=== PATIENT | female | born 1955 | race Caucasian/White ===

== ENCOUNTER 2019-03-05 02:56 | Emergency (ER) | payer MEDICARE, OTHER ==
[2019-03-05] MEDS ORDERED: Colchicine 0.6 MG Tab PO ONE ×2 (02:57→03:49)
[2019-03-05 03:04] VITALS: BP 172/69
--- NOTE | 2019-03-05 03:16 | EDM.PDOC ---
ED HPI GENERAL MEDICAL PROBLEM - General Chief Complaint: Lower Extremity Injury/Pain Stated Complaint: LEFT FOOT/ANKLE PAIN Time Seen by Provider: 03/05/19 03:05 Source of Information: Reports: Patient History Limitations: Reports: No Limitations - History of Present Illness INITIAL COMMENTS - FREE TEXT/NARRATIVE: This 63 yo female patient reports to the ED with left foot and ankle pain. The patient reports she noticed increased pain at about 1700 last night. The patient does not recall any injury to the area. The patient reports she took Tylenol and a gout pill with no symptom relief. The patient also reports she had some chest pain while she was driving, but denied chest pain during assessment. The patient was advised that our lab is not able to do the testing for cardiac problems, so if she has chest pain, she will need to be placed in an ambulance and taken to a facility able to run necessary labs to rule out cardiac. The patient reports she does not have any chest pain. 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, Other Medication(s) ("a gout pill" ) Left Ankle Pain Score (Numeric/FACES): 9 - Related Data Allergies Allergy/AdvReac Type Severity Reaction Status Date / Time atorvastatin calcium Allergy Muscle Verified 03/05/19 03:05 [From Lipitor] Aches cerivastatin sodium Allergy Muscle Verified 03/05/19 03:05 [From Baycol] Aches hydrocodone Allergy Disorientat Verified 03/05/19 03:05 ion lovastatin [From Mevacor] Allergy Nausea and Verified 03/05/19 03:05 Vomiting oxycodone [Oxycodone] Allergy Disorientat Verified 03/05/19 03:05 ion pravastatin Allergy Muscle Verified 03/05/19 03:05 Aches simvastatin [From Zocor] Allergy Muscle Verified 03/05/19 03:05 Aches tramadol Allergy Itching Verified 03/05/19 03:05 prednisone AdvReac Anxiety Verified 03/05/19 03:05 Home Meds: Home Meds Aspirin [Yina Chewable] 81 mg PO DAILY 11/06/13 [History] Enalapril Maleate 10 mg PO DAILY 11/06/13 [History] Insulin Glarg,Human.Rec.Analog [Lantus Solostar] 63 units SUBCUT ACBED 11/06/13 [History] Isosorbide Mononitrate [Isosorbide Mononitrate ER] 60 mg PO DAILY 11/06/13 [ History] Omeprazole 1 tab PO BID 11/06/13 [History] metFORMIN [Glucophage] 1 tab PO BID 11/06/13 [History] Acetaminophen [Tylenol Extra Strength] 1 tab PO Q6H 02/21/16 [History] Albuterol Sulfate [Proair Hfa] 2 puff INH ASDIRECTED PRN 02/21/16 [History] Albuterol/Ipratropium [DuoNeb 3.0-0.5 MG/3 ML] 1 bottle INH BID PRN 02/21/16 [ History] Codeine/guaiFENesin [Robitussin AC] 5 ml PO BEDTIME PRN 02/21/16 [History] Multivitamin with Minerals [Multiple Vitamin] 1 tab PO DAILY 02/21/16 [History] Nitroglycerin [Nitrostat] 1 tab SL ASDIRECTED PRN 02/21/16 [History] Tacrolimus [Protopic] 1 squirt TOP BID PRN 02/21/16 [History] Escitalopram [Lexapro] 10 mg PO DAILY 03/05/19 [History] Metoprolol Succinate [Toprol Xl] 25 mg PO DAILY 03/05/19 [History] Ranolazine [Ranolazine ER] 500 mg PO BID 03/05/19 [History] Past Medical History HEENT History: Reports: Impaired Vision Cardiovascular History: Reports: Heart Murmur, High Cholesterol, Hypertension Respiratory History: Reports: COPD, Sleep Apnea Other Respiratory History: "mushroom lung" Gastrointestinal History: Reports: GERD 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 History: Reports: None 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: Musculoskeletal History: Reports: Back Pain, Chronic Neurological History: Reports: Other (See Below) Other Neuro History: RESTLESS LEG SYNDROME Psychiatric History: Reports: None Endocrine/Metabolic History: Reports: Diabetes, Type II, Obesity/BMI 30+ Hematologic History: Reports: None Immunologic History: Reports: None Oncologic (Cancer) History: Reports: None 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 ED EXAM, GENERAL - Physical Exam Exam: See Below Exam Limited By: No Limitations General Appearance: Alert, WD/WN, Mild Distress, Obese Eye Exam: Bilateral Eye: EOMI, Normal Inspection, PERRL Ears: Normal External Exam, Normal Canal, Hearing Grossly Normal, Normal TMs Nose: Normal Inspection, Normal Mucosa, No Blood Throat/Mouth: Normal Inspection, Normal Lips, Normal Teeth, Normal Gums, Normal Oropharynx, Normal Voice, No Airway Compromise Head: Atraumatic, Normocephalic Neck: Normal Inspection, Supple, Non-Tender, Full Range of Motion Respiratory/Chest: No Respiratory Distress, Lungs Clear, Normal Breath Sounds, No Accessory Muscle Use, Chest Non-Tender Cardiovascular: Normal Peripheral Pulses, Regular Rate, Rhythm, No Edema, No Gallop, No JVD, No Murmur, No Rub GI/Abdominal: Normal Bowel Sounds, Soft, Non-Tender, No Organomegaly, No Distention, No Abnormal Bruit, No Mass, Other (obese) (Female) Exam: Deferred Rectal (Female) Exam: Deferred Back Exam: Normal Inspection, Full Range of Motion, NT Extremities: Normal Inspection, Normal Range of Motion, No Pedal Edema, Normal Capillary Refill, Leg Pain (left ankle and foot pain) Neurological: Alert, Oriented, CN II-XII Intact, Normal Cognition, Normal Reflexes, No Motor/Sensory Deficits Psychiatric: Normal Affect, Normal Mood Skin Exam: Warm, Dry, Intact, Normal Color, No Rash Lymphatic: No Adenopathy Course - Vital Signs Last Recorded V/S: Last Vital Signs Temp 36.6 C 03/05/19 03:01 Pulse 95 03/05/19 03:01 Resp 18 03/05/19 03:01 BP 172/69 H 03/05/19 03:01 Pulse Ox 95 03/05/19 03:01 - Orders/Labs/Meds Labs: Laboratory Tests 03/05/19 03/05/19 03/05/19 Range/Units 03:14 03:14 03:14 WBC 10.5 H (5.0-10.0) 10^3/uL RBC 4.56 (4.2-5.4) 10^6/uL Hgb 13.8 (12.0-16.0) g/dL Hct 39.8 (37.0-47.0) % MCV 87.3 (80-100) fL MCH 30.3 (27.0-34.0) pg MCHC 34.7 (33.0-35.0) g/dL Plt Count 251 (150-450) 10^3/uL Neut % (Auto) 57.8 (42.2-75.2) % Lymph % (Auto) 31.0 (20.5-50.1) % [place] % (Auto) 9.3 H (2-8) % Eos % (Auto) 1.4 (1.0-3.0) % Baso % (Auto) 0.5 (0.0-1.0) % Sodium 135 (135-145) mmol/L Potassium 4.4 (3.6-5.0) mmol/L Chloride 101 (101-111) mmol/L Carbon Dioxide 23.0 (21.0-31.0) mmol/L Anion Gap 15.4 BUN 18 (7-18) mg/dL Creatinine 0.8 (0.6-1.3) mg/dL Est Cr Clr Drug Dosing 57.99 mL/min Estimated GFR (MDRD) > 60 BUN/Creatinine Ratio 22.50 Glucose 175 H (74-105) mg/dL Uric Acid 7.4 H (2.6-7.2) mg/dL Calcium 8.7 (8.4-10.2) mg/dl Total Bilirubin 0.6 (0.2-1.0) mg/dL AST 21 (10-42) IU/L ALT 21 (10-60) IU/L Alkaline Phosphatase 79 (42-121) IU/L Total Protein 6.9 (6.7-8.2) g/dl Albumin 3.9 (3.2-5.5) g/dl Globulin 3.0 Albumin/Globulin Ratio 1.30 Meds: Medications Discontinued Medications Generic Name Dose Route Start Last Admin Trade Name Freq PRN Reason Stop Dose Admin Colchicine 1.2 mg 03/05/19 03:49 Colcrys PO 03/05/19 03:50 ONETIME ONE Departure - Departure Time of Disposition: 03:52 Disposition: Home, Self-Care 01 Condition: Fair Clinical Impression: Acute gout of left ankle Qualifiers: Gout etiology: unspecified cause Qualified Code(s): M10.9 - Gout, unspecified - Discharge Information *PRESCRIPTION DRUG MONITORING PROGRAM REVIEWED*: Not Applicable *COPY OF PRESCRIPTION DRUG MONITORING REPORT IN PATIENT LANA: Not Applicable Instructions: Low-Purine Eating Plan Forms: ED Department Discharge Care Plan Goals: The patient was advised of the examination, lab and x-ray results during the visit. The patient was given an oral dose of Colchicine (1.2 mg) while in the ED. The patient was discharged with a dose of Colchicine (0.6 mg) #1 to take at 0500. The patient was encouraged to follow-up with her primary care facility for continued evaluation and further treatment. If the patient has any additional symptoms or concerns, the patient should either return to the emergency department or visit her primary care facility.
[2019-03-05 03:42] LABS: ANION GAP 15.4; CHLORIDE,CL 101 mmol/L (101-111); SODIUM,NA 135 mmol/L (135-145)
[2019-03-05] MEDS ORDERED: Colchicine 0.6 MG Tab ONE (03:53)
== END 2019-03-05 04:02 | disposition home or self-care (01) ==
LOC: DL.ED 02:56
DX: M10.9 Gout, unspecified (principal); E78.00 Pure hypercholesterolemia, unspecified; I10 Essential (primary) hypertension; J44.9 Chronic obstructive pulmonary disease, unspecified; Z88.8 Allergy status to other drugs, medicaments and biological substances; K21.9 Gastro-esophageal reflux disease without esophagitis; Z79.82 Long term (current) use of aspirin; Z79.4 Long term (current) use of insulin; Z79.899 Other long term (current) drug therapy; E11.9 Type 2 diabetes mellitus without complications
CPT/HCPCS: 36415; 73610; 73630; 80053; 84550; 85025; 99283; A9270

== ENCOUNTER 2019-12-01 11:30 | Emergency (ER) | payer MEDICARE, OTHER ==
[~2019-12-01 11:30] MED LIST: Sodium Chloride 0.9% 10 ML Syringe FLUSH PRN
--- NOTE | 2019-12-01 11:54 | EDM.PDOC ---
<Chandler Morales - Last Filed: 12/01/19 11:49> ED HPI GENERAL MEDICAL PROBLEM - General Chief Complaint: Chest Pain Stated Complaint: [facility] Time Seen by Provider: 12/01/19 11:49 Source of Information: Reports: Patient, RN, RN Notes Reviewed History Limitations: Reports: No Limitations - History of Present Illness INITIAL COMMENTS - FREE TEXT/NARRATIVE: Patient presents to the ED after being seen at clinic for a routine follow-up. She reports chest pain and feeling "a little funny" when the chest pain came on and did not feel herself for a moment when the chest pain presented. Her blood pressures were recorded in clinic and were in the 90s/60s. She states she has been having this chest pain on and off for over a month but hasn't mentioned it because she has enough stress and worry in her life with her having lung cancer. She does not report any chest pain currently and states that it only lasts a few minutes. When the pain presents it is in her upper left chest that radiates to her left armpit and arm. She is currently resting comfortably in the ED bed. Onset: Gradual Location: Reports: Chest (upper left chest) Quality: Reports: Ache, Pressure Severity: Mild Improves with: Reports: None Worsens with: Reports: None Associated Symptoms: Reports: Chest Pain, Shortness of Breath (When the pain comes on she reports having a harder time taking a deep breath.). Denies: Confusion, Cough, Diaphoresis, Fever/Chills, Headaches, Loss of Appetite, Nausea /Vomiting - Related Data Allergies Allergy/AdvReac Type Severity Reaction Status Date / Time atorvastatin calcium Allergy Muscle Verified 03/05/19 03:05 [From Lipitor] Aches cerivastatin sodium Allergy Muscle Verified 03/05/19 03:05 [From Baycol] Aches hydrocodone Allergy Disorientat Verified 03/05/19 03:05 ion lovastatin [From Mevacor] Allergy Nausea and Verified 03/05/19 03:05 Vomiting oxycodone [Oxycodone] Allergy Disorientat Verified 03/05/19 03:05 ion pravastatin Allergy Muscle Verified 03/05/19 03:05 Aches simvastatin [From Zocor] Allergy Muscle Verified 03/05/19 03:05 Aches tramadol Allergy Itching Verified 03/05/19 03:05 prednisone AdvReac Anxiety Verified 03/05/19 03:05 Home Meds: Home Meds Aspirin [Yina Chewable] 81 mg PO DAILY 11/06/13 [History] Enalapril Maleate 10 mg PO DAILY 11/06/13 [History] Insulin Glarg,Human.Rec.Analog [Lantus Solostar] 63 units SUBCUT ACBED 11/06/13 [History] Isosorbide Mononitrate [Isosorbide Mononitrate ER] 60 mg PO DAILY 11/06/13 [ History] Omeprazole 1 tab PO BID 11/06/13 [History] metFORMIN [Glucophage] 1 tab PO BID 11/06/13 [History] Acetaminophen [Tylenol Extra Strength] 1 tab PO Q6H 02/21/16 [History] Albuterol Sulfate [Proair Hfa] 2 puff INH ASDIRECTED PRN 02/21/16 [History] Albuterol/Ipratropium [DuoNeb 3.0-0.5 MG/3 ML] 1 bottle INH BID PRN 02/21/16 [ History] Codeine/guaiFENesin [Robitussin AC] 5 ml PO BEDTIME PRN 02/21/16 [History] Multivitamin with Minerals [Multiple Vitamin] 1 tab PO DAILY 02/21/16 [History] Nitroglycerin [Nitrostat] 1 tab SL ASDIRECTED PRN 02/21/16 [History] Tacrolimus [Protopic] 1 squirt TOP BID PRN 02/21/16 [History] Escitalopram [Lexapro] 10 mg PO DAILY 03/05/19 [History] Metoprolol Succinate [Toprol Xl] 25 mg PO DAILY 03/05/19 [History] Ranolazine [Ranolazine ER] 500 mg PO BID 03/05/19 [History] Past Medical History HEENT History: Reports: Impaired Vision Cardiovascular History: Reports: Heart Murmur, High Cholesterol, Hypertension Respiratory History: Reports: COPD, Sleep Apnea Other Respiratory History: "mushroom lung" Gastrointestinal History: Reports: GERD 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 History: Reports: 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: Musculoskeletal History: Reports: Back Pain, Chronic Neurological History: Reports: Other (See Below) Other Neuro History: RESTLESS LEG SYNDROME Psychiatric History: Reports: None Endocrine/Metabolic History: Reports: Diabetes, Type II, Obesity/BMI 30+ Hematologic History: Reports: None Immunologic History: Reports: None Oncologic (Cancer) History: Reports: None 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 Denies: Edema, Lightheadedness, Palpitations, Syncope Endocrine: Reports: No Symptoms GI/Abdominal: Denies: Abdominal Pain, Constipation, Diarrhea, Nausea, Vomiting : Denies: Dysuria, Flank Pain, Frequency, Pain Musculoskeletal: Reports: No Symptoms Skin: Reports: No Symptoms Neurological: Denies: Confusion, Dizziness, Headache, Syncope, Tingling, Weakness Psychiatric: Denies: Agitation, Anxiety, Confusion Hematologic/Lymphatic: Reports: No Symptoms Immunologic: Reports: No Symptoms ED EXAM, GENERAL - Physical Exam Exam: See Below Exam Limited By: No Limitations General Appearance: Alert, WD/WN, No Apparent Distress Neck: Normal Inspection, Supple, Non-Tender, Full Range of Motion Respiratory/Chest: No Respiratory Distress, Lungs Clear, Normal Breath Sounds, No Accessory Muscle Use, Chest Non-Tender Cardiovascular: Normal Peripheral Pulses GI/Abdominal: Normal Bowel Sounds, Soft, Non-Tender, No Organomegaly, No Distention, No Abnormal Bruit, No Mass (Female) Exam: Deferred Rectal (Female) Exam: Deferred Back Exam: Normal Inspection, Full Range of Motion, NT Extremities: Normal Inspection, Normal Range of Motion, Non-Tender, Normal Capillary Refill, No Pedal Edema Neurological: Alert, Oriented, CN II-XII Intact, Normal Cognition, Normal Gait, Normal Reflexes, No Motor/Sensory Deficits Psychiatric: Normal Affect, Normal Mood Skin Exam: Warm, Dry, Intact, Normal Color, No Rash Lymphatic: No Adenopathy Course - Orders/Labs/Meds Orders: Active Orders 24 hr Category Date Time Status EKG 12 Lead [EKG Documentation Completion] [RC] STAT Care 12/01/19 11:07 Active Peripheral IV Care [RC] . DIRECTED Care 12/01/19 11:08 Active Chest 1V Frontal [CR] Stat Exams 12/01/19 11:07 Taken Sodium Chloride 0.9% [Saline Flush] Med 12/01/19 11:06 Active 10 ml FLUSH ASDIRECTED PRN Peripheral IV Insertion Adult [OM.PC] Stat Oth 12/01/19 11:07 Ordered Medication Orders Sodium Chloride (Saline Flush) 10 ml FLUSH ASDIRECTED PRN PRN Reason: Keep Vein Open Last Admin: 12/01/19 12:00 Dose: 10 ml Labs: Laboratory Tests 12/01/19 12/01/19 12/01/19 Range/Units 11:15 11:15 11:15 WBC 8.7 (5.0-10.0) 10^3/uL RBC 4.48 (4.2-5.4) 10^6/uL Hgb 14.0 (12.0-16.0) g/dL Hct 40.5 (37.0-47.0) % MCV 90.4 D (80-100) fL MCH 31.3 (27.0-34.0) pg MCHC 34.6 (33.0-35.0) g/dL Plt Count 264 (150-450) 10^3/uL Neut % (Auto) 60.2 (42.2-75.2) % Lymph % (Auto) 30.3 (20.5-50.1) % [place] % (Auto) 7.2 (2-8) % Eos % (Auto) 1.7 (1.0-3.0) % Baso % (Auto) 0.6 (0.0-1.0) % PT 9.9 (9.0-12.0) SEC INR 1.0 (0.9-1.2) APTT 22.1 (22.0-34.0) SEC Sodium 137 (135-145) mmol/L Potassium 4.8 (3.6-5.0) mmol/L Chloride 104 (101-111) mmol/L Carbon Dioxide 20.0 L (21.0-31.0) mmol/L Anion Gap 17.8 BUN 27 H (7-18) mg/dL Creatinine 1.0 (0.6-1.3) mg/dL Est Cr Clr Drug Dosing TNP Estimated GFR (MDRD) 55 BUN/Creatinine Ratio 27.00 Glucose 244 H (74-105) mg/dL Calcium 8.5 (8.4-10.2) mg/dl Total Bilirubin 0.4 (0.2-1.0) mg/dL AST 18 (10-42) IU/L ALT 18 (10-60) IU/L Alkaline Phosphatase 84 (42-121) IU/L Troponin I < 0.02 (0.00-0.02) ng/ml B-Natriuretic Peptide 6 (0-100) pg/ml Total Protein 6.8 (6.7-8.2) g/dl Albumin 3.7 (3.2-5.5) g/dl Globulin 3.1 Albumin/Globulin Ratio 1.19 Lipase 51 (22-51) U/L Meds: Medications Generic Name Dose Route Start Last Admin Trade Name Freq PRN Reason Stop Dose Admin Sodium Chloride 10 ml 12/01/19 11:06 12/01/19 12:00 Saline Flush FLUSH 10 ml ASDIRECTED PRN Administration Keep Vein Open Departure - Departure Disposition: Home, Self-Care 01 Clinical Impression: Recurrent chest pain Instructions: Nonspecific Chest Pain, [id number] Forms: ED Department Discharge Additional Instructions: Contact Dr. Ford to report your recurrent chest pain. Return to ER if worse at any time. - My Orders Last 24 Hours: My Active Orders 12/01/19 11:06 Sodium Chloride 0.9% [Saline Flush] 10 ml FLUSH ASDIRECTED PRN 12/01/19 11:07 EKG 12 Lead [EKG Documentation Completion] [RC] STAT Chest 1V Frontal [CR] Stat Peripheral IV Insertion Adult [OM.PC] Stat 12/01/19 11:08 Peripheral IV Care [RC] . DIRECTED - Assessment/Plan Last 24 Hours: My Active Orders 12/01/19 11:06 Sodium Chloride 0.9% [Saline Flush] 10 ml FLUSH ASDIRECTED PRN 12/01/19 11:07 EKG 12 Lead [EKG Documentation Completion] [RC] STAT Chest 1V Frontal [CR] Stat Peripheral IV Insertion Adult [OM.PC] Stat 12/01/19 11:08 Peripheral IV Care [RC] . DIRECTED <Mannie Tran - Last Filed: 02/05/20 13:02> ED HPI GENERAL MEDICAL PROBLEM - History of Present Illness INITIAL COMMENTS - FREE TEXT/NARRATIVE: Pt sent from clinic for chest pain evaluation. She went to clinic for lab review , and told them of her recurrent chest pain of one months duration. 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 Pt states she is currently pain free. Denies shortness of breath, palpitations, or any other symptoms. EKG INTERPRETATION EKG Date: 12/01/19 Time: 11:10 Rhythm: Other (SR) Rate (Beats/Min): 85 [place]: LAD-Left [place] Deviation P-Wave: Present QRS: Other (old inferior Q waves, late precordial R/S transition) ST-T: Normal QT: Normal Comparison: No Change Course - Radiology Interpretation Free Text/Narrative:: [facility] Final Radiology Report Call: [phone] assistance Online chat: [email or web address] Name: NOAH SANCHEZ Age: 64Years F Date: 12/01/2019 SSN: -- : 1955 Study: XR CHEST 1 VIEW FRONTAL Requesting Physician: MANNIE TRAN Images: 1 Addl Studies: Provided Clinical History: Contrast: Contrast Medium: Contrast Amount: Contrast Method: CONFIDENTIALITY STATEMENT This report is intended only for use by the referring physician, and only in accordance with law. If you received this in error, call [phone]. Page 1 of 1 PROCEDURE INFORMATION: Exam: XR Chest, 1 View Exam date and time: 12/01/2019 11:19 AM Age: 64 years old Clinical indication: Chest pain TECHNIQUE: Imaging protocol: XR of the chest Views: 1 view. COMPARISON: CR Chest 2V 02/04/2016 1:55 AM FINDINGS: Lungs: Unremarkable. No consolidation. Pleural space: Unremarkable. No pleural effusion. No pneumothorax. Heart/Mediastinum: Unremarkable. No cardiomegaly. Bones/joints: Unremarkable. IMPRESSION: No acute findings. Thank you for allowing us to participate in the care of your patient. Dictated and Authenticated by: Daniel Stein MD 12/01/2019 12:20 PM Central Time ([place] & [place]) - Re-Assessments/Exams Free Text/Narrative Re-Assessment/Exam: 12/01/19 12:43 I personally performed or re-performed the physical examination and medical decision making. I have verified all student documentation or findings, including history, physical exam and/or medical decision making. Departure - Departure Time of Disposition: 13:00 Condition: Good Sepsis Event Note - Focused Exam Date Exam was Performed: 12/01/19 Time Exam was Performed: 13:00
[2019-12-01 12:10] LABS: ANION GAP 17.8; CHLORIDE,CL 104 mmol/L (101-111); SODIUM,NA 137 mmol/L (135-145)
[2019-12-01 17:50] VITALS: BP 124/69; PULSE 62
== END 2019-12-01 13:12 | disposition home or self-care (01) ==
LOC: DL.ED 11:30
DX: R07.9 Chest pain, unspecified (principal); I10 Essential (primary) hypertension; J44.9 Chronic obstructive pulmonary disease, unspecified; K21.9 Gastro-esophageal reflux disease without esophagitis; Z79.82 Long term (current) use of aspirin; Z88.8 Allergy status to other drugs, medicaments and biological substances; Z88.5 Allergy status to narcotic agent; Z79.899 Other long term (current) drug therapy
CPT/HCPCS: 36415; 71045; 80053; 83690; 83880; 84484; 85025; 85610; 85730; 93005; 99285-25

== ENCOUNTER 2020-08-30 16:33 | Observation (INO) | payer MEDICARE, OTHER ==
--- NOTE | 2020-08-30 16:58 | EDM.PDOC ---
ED HPI GENERAL MEDICAL PROBLEM - General Stated Complaint: DIZZINESS/LT ARM WEAKNESS Time Seen by Provider: 08/30/20 16:56 Source of Information: Reports: Patient, Provider (JAMAR Jules from [facility]), RN, RN Notes Reviewed History Limitations: Reports: No Limitations - History of Present Illness INITIAL COMMENTS - FREE TEXT/NARRATIVE: Patient presents to the ED from [facility] at the request of GEMMA Jules for dizziness, nausea, vomiting, and progressive left arm weakness. Per patient report, the dizziness began yesterday morning at approximately 0100. She states she stood up while she was dizzy and immediately vomited. She attests to ongoing dizziness with vomiting over the past 24 hours; it is maintaining and not progressing in volume or frequency. She notices it most when she lays down; she currently denies dizziness as she is sitting up. She does attest to an episode of chest pain with her first bout of dizziness, but states she has a history of angina. She states the chest pain remained localized to her chest and did not radiate. She denies abdominal pain, diarrhea, melena, hematochezia, fever, shaking chills, or recent illness. She denies a history of stroke. She did not take any medications for any of her aforementioned symptoms. - Related Data Allergies Allergy/AdvReac Type Severity Reaction Status Date / Time atorvastatin calcium Allergy Muscle Verified 08/30/20 17:28 [From Lipitor] Aches cerivastatin sodium Allergy Muscle Verified 08/30/20 17:28 [From Baycol] Aches hydrocodone Allergy Disorientat Verified 08/30/20 17:28 ion lovastatin [From Mevacor] Allergy Nausea and Verified 08/30/20 17:28 Vomiting oxycodone [Oxycodone] Allergy Disorientat Verified 08/30/20 17:28 ion pravastatin Allergy Muscle Verified 08/30/20 17:28 Aches simvastatin [From Zocor] Allergy Muscle Verified 08/30/20 17:28 Aches tramadol Allergy Itching Verified 08/30/20 17:28 prednisone AdvReac Anxiety Verified 08/30/20 17:28 Home Meds: Home Meds Aspirin [Yina Chewable] 81 mg PO DAILY 11/06/13 [History] Enalapril Maleate 10 mg PO DAILY 11/06/13 [History] Insulin Glarg,Human.Rec.Analog [Lantus Solostar] 63 units SUBCUT ACBED 11/06/13 [History] Isosorbide Mononitrate [Isosorbide Mononitrate ER] 60 mg PO DAILY 11/06/13 [History] Omeprazole 1 tab PO BID 11/06/13 [History] metFORMIN [Glucophage] 1 tab PO BID 11/06/13 [History] Acetaminophen [Tylenol Extra Strength] 1 tab PO Q6H 02/21/16 [History] Albuterol Sulfate [Proair Hfa] 2 puff INH ASDIRECTED PRN 02/21/16 [History] Albuterol/Ipratropium [DuoNeb 3.0-0.5 MG/3 ML] 1 bottle INH BID PRN 02/21/16 [History] Codeine/guaiFENesin [Robitussin AC] 5 ml PO BEDTIME PRN 02/21/16 [History] Multivitamin with Minerals [Multiple Vitamin] 1 tab PO DAILY 02/21/16 [History] Nitroglycerin [Nitrostat] 1 tab SL ASDIRECTED PRN 02/21/16 [History] Tacrolimus [Protopic] 1 squirt TOP BID PRN 02/21/16 [History] Escitalopram [Lexapro] 10 mg PO DAILY 03/05/19 [History] Metoprolol Succinate [Toprol Xl] 25 mg PO DAILY 03/05/19 [History] Ranolazine [Ranolazine ER] 500 mg PO BID 03/05/19 [History] Past Medical History HEENT History: Reports: Impaired Vision Cardiovascular History: Reports: Heart Murmur, High Cholesterol, Hypertension Respiratory History: Reports: COPD, Sleep Apnea Other Respiratory History: "mushroom lung" Gastrointestinal History: Reports: GERD 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 History: Reports: None 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: Musculoskeletal History: Reports: Back Pain, Chronic Neurological History: Reports: Other (See Below) Other Neuro History: RESTLESS LEG SYNDROME Psychiatric History: Reports: None Endocrine/Metabolic History: Reports: Diabetes, Type II, Obesity/BMI 30+ Hematologic History: Reports: None Immunologic History: Reports: None Oncologic (Cancer) History: Reports: None 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 ED EXAM, DIZZINESS - Physical Exam Exam: See Below Exam Limited By: No Limitations General Appearance: Alert, WD/WN, No Apparent Distress Eye Exam: Bilateral Eye: EOMI, Normal Inspection, PERRL Ears: Normal External Exam, Normal Canal, Hearing Grossly Normal, Normal TMs Throat/Mouth: Normal Inspection, Normal Voice, No Airway Compromise Head Exam: Atraumatic, Normocephalic Vertigo: No: reproducible Neck: Normal Inspection, Supple, Non-Tender Respiratory/Chest: No Respiratory Distress, Lungs Clear, Normal Breath Sounds, No Accessory Muscle Use, Chest Non-Tender Cardiovascular: Normal Peripheral Pulses, Regular Rate, Rhythm, No Edema, No Gallop, No Murmur, No Rub GI/Abdominal: Normal Bowel Sounds, Soft, Non-Tender, No Distention, No Mass, Pelvis Stable Neurological: Alert, Normal Mood/Affect, CN II-XII Intact, Normal Gait, No Motor/Sensory Deficits, Withdraws to Pain, Straight Leg Raise (L), Straight Leg Raise (R). No: Abnormal Finger to Nose, Abnormal Sensation, Abnormal Light Touch, Abnormal Motor, Saddle Anesthesia Back Exam: Normal Inspection, Full Range of Motion Extremities: Normal Inspection, Normal Range of Motion, Non-Tender, No Pedal Edema, Normal Capillary Refill Skin Exam: Warm, Dry, Intact, Normal Color, No Rash. No: Ecchymosis, Erythema, Mottled, Pallor, Petechiae, Rash #1 Interpretation EKG Date: 08/30/20 Time: 16:46 Rhythm: NSR Rate (Beats/Min): 80 [place]: LAD-Left [place] Deviation P-Wave: Present ST-T: Normal QT: Prolonged Course - Vital Signs Last Recorded V/S: Last Vital Signs Temp 98.6 F 08/30/20 17:07 Pulse 95 08/30/20 17:07 Resp 16 08/30/20 17:07 BP 156/67 H 08/30/20 17:07 Pulse Ox 95 08/30/20 17:07 - Orders/Labs/Meds Orders: Active Orders 24 hr Category Date Time Status Admission Diagnosis [ADT] Stat ADT 08/30/20 18:53 Ordered Admission Status [Patient Status] [ADT] Routine ADT 08/30/20 18:53 Active Cardiac Monitoring [RC] . DIRECTED Care 08/30/20 18:53 Active EKG Documentation Completion [RC] STAT Care 08/30/20 16:53 Active Sodium Chloride 0.9% [Normal Saline] 500 ml Med 08/30/20 18:36 Active IV .BOLUS Medication Orders Sodium Chloride (Normal Saline) 500 mls @ 500 mls/hr IV .BOLUS ONE Stop: 08/30/20 19:35 Last Admin: 08/30/20 18:47 Dose: 500 mls/hr Documented by: FIDELIA Labs: Laboratory Tests 08/30/20 08/30/20 08/30/20 Range/Units 16:55 16:58 16:58 WBC 9.6 (5.0-10.0) 10^3/uL RBC 5.01 (4.2-5.4) 10^6/uL Hgb 14.7 (12.0-16.0) g/dL Hct 43.3 (37.0-47.0) % MCV 86.4 D (80-100) fL MCH 29.3 (27.0-34.0) pg MCHC 33.9 (33.0-35.0) g/dL Plt Count 301 (150-450) 10^3/uL Neut % (Auto) 56.0 (42.2-75.2) % Lymph % (Auto) 35.2 (20.5-50.1) % [place] % (Auto) 7.6 (2-8) % Eos % (Auto) 0.8 L (1.0-3.0) % Baso % (Auto) 0.4 (0.0-1.0) % Sodium 140 (136-145) mmol/L Potassium 4.1 (3.5-5.1) mmol/L Chloride 100 (98-107) mmol/L Carbon Dioxide 27 (21-32) mmol/L Anion Gap 17.1 H (7-13) mEq/L BUN 14 (7-18) mg/dL Creatinine 1.07 H (0.55-1.02) mg/dL Est Cr Clr Drug Dosing 48.42 mL/min Estimated GFR (MDRD) 51 BUN/Creatinine Ratio 13.1 (No establ ref range) Glucose 134 H (74-99) mg/dL Lactic Acid (0.4-2.0) mmol/L Calcium 9.2 (8.5-10.1) mg/dL Phosphorus 4.3 (2.6-4.7) mg/dL Magnesium 1.1 L (1.8-2.4) mg/dL Total Bilirubin 0.3 (0.2-1.0) mg/dL AST 17 (15-37) U/L ALT 25 (14-59) U/L Alkaline Phosphatase 93 (46-116) U/L Troponin I < 0.017 (0.000-0.056) ng/mL C-Reactive Protein 0.5 (0.0-0.9) mg/dL Total Protein 7.6 (6.4-8.2) g/dL Albumin 3.6 (3.4-5.0) g/dL Globulin 4.0 Albumin/Globulin Ratio 0.9 TSH, Ultra Sensitive 2.14 (0.36-3.74) uIU/mL Urine Color (YELLOW) Urine Appearance (CLEAR) Urine pH (5.0-9.0) Ur Specific Hailey (1.005-1.030) Urine Protein (NEGATIVE) Urine Glucose (UA) (NEGATIVE) Urine Ketones (NEGATIVE) Urine Occult Blood (NEGATIVE) Urine Nitrite (NEGATIVE) Urine Bilirubin (NEGATIVE) Urine Urobilinogen (0.2-1.0) mg/dL Ur Leukocyte Esterase (NEGATIVE) Urine RBC /HPF Urine WBC (0-5/HPF) /HPF Ur Epithelial Cells (NOT SEEN) /HPF Triple Phos Crystals (NOT SEEN) /HPF Amorphous Sediment (NOT SEEN) /HPF Urine Bacteria (0-FEW/HPF) /HPF Urine Mucus (NOT SEEN) /LPF SARS CoV-2 RNA Rapid JENNIFER Negative (NEGATIVE) 08/30/20 08/30/20 Range/Units 16:58 18:12 WBC (5.0-10.0) 10^3/uL RBC (4.2-5.4) 10^6/uL Hgb (12.0-16.0) g/dL Hct (37.0-47.0) % MCV (80-100) fL MCH (27.0-34.0) pg MCHC (33.0-35.0) g/dL Plt Count (150-450) 10^3/uL Neut % (Auto) (42.2-75.2) % Lymph % (Auto) (20.5-50.1) % [place] % (Auto) (2-8) % Eos % (Auto) (1.0-3.0) % Baso % (Auto) (0.0-1.0) % Sodium (136-145) mmol/L Potassium (3.5-5.1) mmol/L Chloride (98-107) mmol/L Carbon Dioxide (21-32) mmol/L Anion Gap (7-13) mEq/L BUN (7-18) mg/dL Creatinine (0.55-1.02) mg/dL Est Cr Clr Drug Dosing mL/min Estimated GFR (MDRD) BUN/Creatinine Ratio (No establ ref range) Glucose (74-99) mg/dL Lactic Acid 2.2 H* (0.4-2.0) mmol/L Calcium (8.5-10.1) mg/dL Phosphorus (2.6-4.7) mg/dL Magnesium (1.8-2.4) mg/dL Total Bilirubin (0.2-1.0) mg/dL AST (15-37) U/L ALT (14-59) U/L Alkaline Phosphatase (46-116) U/L Troponin I (0.000-0.056) ng/mL C-Reactive Protein (0.0-0.9) mg/dL Total Protein (6.4-8.2) g/dL Albumin (3.4-5.0) g/dL Globulin Albumin/Globulin Ratio TSH, Ultra Sensitive (0.36-3.74) uIU/mL Urine Color Dark yellow (YELLOW) Urine Appearance Slightly cloudy (CLEAR) Urine pH 6.0 (5.0-9.0) Ur Specific [place] >= 1.030 (1.005-1.030) Urine Protein >=300 H (NEGATIVE) Urine Glucose (UA) Negative (NEGATIVE) Urine Ketones Trace H (NEGATIVE) Urine Occult Blood Trace-intact H (NEGATIVE) Urine Nitrite Negative (NEGATIVE) Urine Bilirubin Small H (NEGATIVE) Urine Urobilinogen 0.2 (0.2-1.0) mg/dL Ur Leukocyte Esterase Small H (NEGATIVE) Urine RBC 0-5 /HPF Urine WBC 40-50 H (0-5/HPF) /HPF Ur Epithelial Cells Few (NOT SEEN) /HPF Triple Phos Crystals Few H (NOT SEEN) /HPF Amorphous Sediment Few (NOT SEEN) /HPF Urine Bacteria Few (0-FEW/HPF) /HPF Urine Mucus Rare (NOT SEEN) /LPF SARS CoV-2 RNA Rapid JENNIFER (NEGATIVE) Meds: Medications Generic Name Dose Route Start Last Admin Trade Name Freq PRN Reason Stop Dose Admin Sodium Chloride 500 mls @ 500 mls/hr 08/30/20 18:36 08/30/20 18:47 Normal Saline IV 08/30/20 19:35 500 mls/hr .BOLUS ONE Administration Discontinued Medications Generic Name Dose Route Start Last Admin Trade Name Freq PRN Reason Stop Dose Admin Magnesium Sulfate 4 gm in 100 mls @ 300 mls/hr 08/30/20 18:35 Magnesium Sulfate In Water Premix IV 08/30/20 18:54 ONETIME ONE - Re-Assessments/Exams Free Text/Narrative Re-Assessment/Exam: 08/30/[address] Hayward, patient will be admitted to observation for nausea/vomiting and hypomagnesemia. NS 500mg IVF initiated. Magnesium Chloride 4mg IVPB initiated. Discussed plan for electrolyte replacement and overnight stay with patient. She verbalized understanding and agreement with plan of care. Departure - Departure Time of Disposition: 19:21 Disposition: Refer to Observation Condition: Good Clinical Impression: Hypomagnesemia Nausea and vomiting Qualifiers: Vomiting type: unspecified Vomiting Intractability: unspecified Qualified Code(s): R11.2 - Nausea with vomiting, unspecified - Discharge Information Sepsis Event Note (ED) - Focused Exam Vital Signs: Vital Signs Temp Pulse Resp BP Pulse Ox 08/30/20 17:07 98.6 F 95 16 156/67 H 95 - My Orders Last 24 Hours: My Active Orders 08/30/20 16:53 EKG Documentation Completion [RC] STAT 08/30/20 18:36 Sodium Chloride 0.9% [Normal Saline] 500 ml IV .BOLUS 08/30/20 18:53 Admission Diagnosis [ADT] Stat Admission Status [Patient Status] [ADT] Routine Cardiac Monitoring [RC] . DIRECTED - Assessment/Plan Last 24 Hours: My Active Orders 08/30/20 16:53 EKG Documentation Completion [RC] STAT 08/30/20 18:36 Sodium Chloride 0.9% [Normal Saline] 500 ml IV .BOLUS 08/30/20 18:53 Admission Diagnosis [ADT] Stat Admission Status [Patient Status] [ADT] Routine Cardiac Monitoring [RC] . DIRECTED
[2020-08-30 17:51] LABS: ANION GAP 17.1 mEq/L (7-13); CHLORIDE,CL 100 mmol/L (98-107); SODIUM,NA 140 mmol/L (136-145)
--- NOTE | 2020-08-30 18:14 | CR ---
PROCEDURE INFORMATION: Exam: XR Chest, 1 View Exam date and time: 08/30/2020 5:52 PM Age: 64 years old Clinical indication: Chest pain; Type not specified TECHNIQUE: Imaging protocol: XR of the chest Views: 1 view. COMPARISON: CR Chest 1V Frontal 12/01/2019 11:19 AM FINDINGS: Lungs: Unremarkable. No consolidation. Pleural space: Unremarkable. No pleural effusion. No pneumothorax. Heart/Mediastinum: Unremarkable. No cardiomegaly. Bones/joints: Unremarkable. IMPRESSION: No acute findings. In
[2020-08-30] MEDS ORDERED: Magnesium Sulfate/Water 4 GM/100 ML BAG IV ONE (18:35)
[2020-08-30] MEDS ORDERED: Sodium Chloride 0.9% 500 ML IV ONE (18:36)
--- NOTE | 2020-08-30 18:41 | CT ---
PROCEDURE INFORMATION: Exam: CT Head Without Contrast Exam date and time: 08/30/2020 6:19 PM Age: 64 years old Clinical indication: Dizziness; Additional info: Dizziness; Left arm weakness TECHNIQUE: Imaging protocol: Computed tomography of the head without contrast. Radiation optimization: All CT scans at this facility use at least one of these dose optimization techniques: automated exposure control; mA and/or kV adjustment per patient size (includes targeted exams where dose is matched to clinical indication); or iterative reconstruction. COMPARISON: CT Head wo Cont 12/03/2019 11:07 AM FINDINGS: Brain: Normal. No hemorrhage. Unremarkable white matter. No mass effect. Cerebral ventricles: No ventriculomegaly. Bones/joints: Unremarkable. No acute fracture. Paranasal sinuses: Mucous retention cyst identified in the right maxillary sinus. No fluid levels. Mastoid air cells: Visualized mastoid air cells are well aerated. Soft tissues: Unremarkable. IMPRESSION: No acute intracranial abnormality.
[2020-08-30] MEDS ORDERED: Magnesium Sulfate/Water 2 GM/50 ML BAG IV ONE ×2 (20:04→20:15)
[2020-08-30] MEDS ORDERED: WATER ONE (20:04)
[2020-08-30] MEDS ORDERED: MAGNESIUM SULFATE ONE (20:04)
[2020-08-30] MEDS ORDERED: Ondansetron 4 MG/2 ML SDV IVPUSH PRN (20:12)
[2020-08-30] MEDS ORDERED: TACROLIMUS TOP PRN (20:13)
[2020-08-30] MEDS ORDERED: Temazepam 15 MG Cap PO PRN (20:20)
[2020-08-30] MEDS ORDERED: Sodium Chloride 0.9% 10 ML Syringe FLUSH PRN (20:20)
[2020-08-30] MEDS ORDERED: Acetaminophen 325 MG Tab PO PRN (20:20)
[2020-08-30] MEDS ORDERED: Docusate Sodium 100 MG Cap PO PRN (20:20)
[2020-08-30] MEDS ORDERED: Promethazine 25 MG Tab PO PRN (20:20)
[2020-08-30] MEDS ORDERED: 50% Dextrose in Water 50 ML Syringe IVPUSH PRN (20:22)
[2020-08-30] MEDS ORDERED: 50% Dextrose in Water 50 ML Syringe IV PRN (20:22)
[2020-08-30] MEDS ORDERED: Glucagon,Human Recombinant 1 MG Vial IM PRN (20:22)
[2020-08-30] MEDS: Meclizine 12.5 MG Tab PO SCH (20:29)
[2020-08-30] MEDS ORDERED: NS + KCl 20mEq/L 1,000 ML IV SCH (20:30)
[2020-08-30] MEDS: Omeprazole 20 MG Cap.CR PO SCH (20:45)
--- NOTE | 2020-08-30 20:48 | PCM.HP ---
H&P History of Present Illness - General Date of Service: 08/30/20 Admit Problem/Dx: Admission Diagnosis/Problem Admission Diagnosis/Problem Vertigo Source of Information: Patient - History of Present Illness Initial Comments - Free Text/Narative: 64-year-old lady with a history of hypertension, coronary artery disease, diabetes. In the evening of 29 of August the patient felt chest discomfort that was transient, resolved quickly. Later in the folder machine hours the patient felt sudden onset of vertigo, nausea. Vertigo and nausea was worse when laying on her left side , and quickly changing positions. She felt left arm "funny feeling" but remained steady on her feet. Did not feel motor deficit, was able to get up and clean up her vomiting from the floor. The patient went to the clinic and was referred to the emergency room. Use to have vertigo and nausea with sudden movements of the head. No further chest pain,no shortness of breath. no headache, no vision change. - Related Data Allergies/Adverse Reactions: Allergies Allergy/AdvReac Type Severity Reaction Status Date / Time atorvastatin calcium Allergy Muscle Verified 08/30/20 20:03 [From Lipitor] Aches cerivastatin sodium Allergy Muscle Verified 08/30/20 20:03 [From Baycol] Aches hydrocodone Allergy Disorientat Verified 08/30/20 20:03 ion lovastatin [From Mevacor] Allergy Nausea and Verified 08/30/20 20:03 Vomiting oxycodone [Oxycodone] Allergy Disorientat Verified 08/30/20 20:03 ion pravastatin Allergy Muscle Verified 08/30/20 20:03 Aches simvastatin [From Zocor] Allergy Muscle Verified 08/30/20 20:03 Aches tramadol Allergy Itching Verified 08/30/20 20:03 prednisone AdvReac Anxiety Verified 08/30/20 20:03 Home Medications: Home Meds Aspirin [Yina Chewable] 81 mg PO DAILY 11/06/13 [History] Enalapril Maleate 10 mg PO DAILY 11/06/13 [History] Insulin Glarg,Human.Rec.Analog [Lantus Solostar] 68 units SUBCUT ACBED 11/06/13 [History] Isosorbide Mononitrate [Isosorbide Mononitrate ER] 60 mg PO DAILY 11/06/13 [History] Omeprazole 1 tab PO BID 11/06/13 [History] metFORMIN [Glucophage] 1 tab PO BID 11/06/13 [History] Acetaminophen [Tylenol Extra Strength] 1 tab PO Q6H 02/21/16 [History] Albuterol Sulfate [Proair Hfa] 2 puff INH ASDIRECTED PRN 02/21/16 [History] Albuterol/Ipratropium [DuoNeb 3.0-0.5 MG/3 ML] 1 bottle INH BID PRN 02/21/16 [History] Codeine/guaiFENesin [Robitussin AC] 5 ml PO BEDTIME PRN 02/21/16 [History] Multivitamin with Minerals [Multiple Vitamin] 1 tab PO DAILY 02/21/16 [History] Nitroglycerin [Nitrostat] 1 tab SL ASDIRECTED PRN 02/21/16 [History] Tacrolimus [Protopic] 1 squirt TOP BID PRN 02/21/16 [History] Escitalopram [Lexapro] 10 mg PO DAILY 03/05/19 [History] Metoprolol Succinate [Toprol Xl] 25 mg PO DAILY 03/05/19 [History] Ranolazine [Ranolazine ER] 500 mg PO BID 03/05/19 [History] Past Medical History HEENT History: Reports: Impaired Vision Cardiovascular History: Reports: Heart Murmur, High Cholesterol, Hypertension Respiratory History: Reports: COPD, Sleep Apnea Other Respiratory History: "mushroom lung" Gastrointestinal History: Reports: GERD 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 History: Reports: None [employer] History: Reports: Musculoskeletal History: Reports: Back Pain, Chronic Neurological History: Reports: Other (See Below) Other Neuro History: RESTLESS LEG SYNDROME Psychiatric History: Reports: None Endocrine/Metabolic History: Reports: Diabetes, Type II, Obesity/BMI 30+ Hematologic History: Reports: None Immunologic History: Reports: None Oncologic (Cancer) History: Reports: None Other Dermatologic History: "autoimmune disorder of the skin" - Infectious Disease History Infectious Disease History: Reports: Chicken Pox, Measles, Mumps - Past Surgical History Respiratory Surgical History: Social & Family History - Tobacco Use Tobacco Use Status *Q: Former Tobacco User Years of Tobacco use: 40 Packs/Tins Daily: 1 Used Tobacco, but Quit: Yes Month/Year Tobacco Last Used: 10/2004 - Caffeine Use Caffeine Use: Reports: Coffee - Recreational Drug Use Recreational Drug Use: No - Living Situation & Occupation Living situation: Reports: , with Spouse H&P Review of Systems - Review of Systems: Review Of Systems: See Below General: Denies: Fever, Chills, Weakness Pulmonary: Denies: Shortness of Breath Cardiovascular: Reports: Chest Pain. Denies: Edema Gastrointestinal: Denies: Abdominal Pain Musculoskeletal: Reports: Neck Pain (Chronic) Psychiatric: Denies: Confusion, Hallucinations Neurological: Reports: Other (vertigo). Denies: Headache, Syncope Exam - Exam Exam: See Below - Vital Signs Vital Signs: Last Vital Signs Temp 97.1 F 08/30/20 19:45 Pulse 77 08/30/20 19:45 Resp 20 08/30/20 19:45 BP 144/62 H 08/30/20 19:45 Pulse Ox 96 08/30/20 19:45 Weight: 235 lb - Exam General: Alert, Oriented Neck: Supple Lungs: Clear to Auscultation, Normal Respiratory Effort Cardiovascular: Regular Rate, Regular Rhythm GI/Abdominal Exam: Normal Bowel Sounds, Soft, Non-Tender Extremities: No Pedal Edema Neurological: Cranial Nerves Intact, Strength Equal Bilateral, Normal Speech, Normal Tone, Sensation Intact, Other (finger to nose test bilaterally normal,). No: Focal Deficit Neuro Extensive - Mental Status: Alert, Oriented x3 Neuro Extensive - Motor, Sensory, Reflexes: No: Abnormal Finger to Nose, Abnormal Heel to [place], Tremor Psychiatric: Alert, Normal Affect, Normal Mood - Patient Data Lab Results Last 24 hrs: Laboratory Results - last 24 hr 08/30/20 08/30/20 08/30/20 Range/Units 16:55 16:58 16:58 WBC 9.6 (5.0-10.0) 10^3/uL RBC 5.01 (4.2-5.4) 10^6/uL Hgb 14.7 (12.0-16.0) g/dL Hct 43.3 (37.0-47.0) % MCV 86.4 D (80-100) fL MCH 29.3 (27.0-34.0) pg MCHC 33.9 (33.0-35.0) g/dL Plt Count 301 (150-450) 10^3/uL Neut % (Auto) 56.0 (42.2-75.2) % Lymph % (Auto) 35.2 (20.5-50.1) % [place] % (Auto) 7.6 (2-8) % Eos % (Auto) 0.8 L (1.0-3.0) % Baso % (Auto) 0.4 (0.0-1.0) % Sodium 140 (136-145) mmol/L Potassium 4.1 (3.5-5.1) mmol/L Chloride 100 (98-107) mmol/L Carbon Dioxide 27 (21-32) mmol/L Anion Gap 17.1 H (7-13) mEq/L BUN 14 (7-18) mg/dL Creatinine 1.07 H (0.55-1.02) mg/dL Est Cr Clr Drug Dosing 48.42 mL/min Estimated GFR (MDRD) 51 BUN/Creatinine Ratio 13.1 (No establ ref range) Glucose 134 H (74-99) mg/dL Lactic Acid (0.4-2.0) mmol/L Calcium 9.2 (8.5-10.1) mg/dL Phosphorus 4.3 (2.6-4.7) mg/dL Magnesium 1.1 L (1.8-2.4) mg/dL Total Bilirubin 0.3 (0.2-1.0) mg/dL AST 17 (15-37) U/L ALT 25 (14-59) U/L Alkaline Phosphatase 93 (46-116) U/L Troponin I < 0.017 (0.000-0.056) ng/mL C-Reactive Protein 0.5 (0.0-0.9) mg/dL Total Protein 7.6 (6.4-8.2) g/dL Albumin 3.6 (3.4-5.0) g/dL Globulin 4.0 Albumin/Globulin Ratio 0.9 TSH, Ultra Sensitive 2.14 (0.36-3.74) uIU/mL Urine Color (YELLOW) Urine Appearance (CLEAR) Urine pH (5.0-9.0) Ur Specific [place] (1.005-1.030) Urine Protein (NEGATIVE) Urine Glucose (UA) (NEGATIVE) Urine Ketones (NEGATIVE) Urine Occult Blood (NEGATIVE) Urine Nitrite (NEGATIVE) Urine Bilirubin (NEGATIVE) Urine Urobilinogen (0.2-1.0) mg/dL Ur Leukocyte Esterase (NEGATIVE) Urine RBC /HPF Urine WBC (0-5/HPF) /HPF Ur Epithelial Cells (NOT SEEN) /HPF Triple Phos Crystals (NOT SEEN) /HPF Amorphous Sediment (NOT SEEN) /HPF Urine Bacteria (0-FEW/HPF) /HPF Urine Mucus (NOT SEEN) /LPF SARS CoV-2 RNA Rapid JENNIFER Negative (NEGATIVE) 08/30/20 08/30/20 Range/Units 16:58 18:12 WBC (5.0-10.0) 10^3/uL RBC (4.2-5.4) 10^6/uL Hgb (12.0-16.0) g/dL Hct (37.0-47.0) % MCV (80-100) fL MCH (27.0-34.0) pg MCHC (33.0-35.0) g/dL Plt Count (150-450) 10^3/uL Neut % (Auto) (42.2-75.2) % Lymph % (Auto) (20.5-50.1) % [place] % (Auto) (2-8) % Eos % (Auto) (1.0-3.0) % Baso % (Auto) (0.0-1.0) % Sodium (136-145) mmol/L Potassium (3.5-5.1) mmol/L Chloride (98-107) mmol/L Carbon Dioxide (21-32) mmol/L Anion Gap (7-13) mEq/L BUN (7-18) mg/dL Creatinine (0.55-1.02) mg/dL Est Cr Clr Drug Dosing mL/min Estimated GFR (MDRD) BUN/Creatinine Ratio (No establ ref range) Glucose (74-99) mg/dL Lactic Acid 2.2 H* (0.4-2.0) mmol/L Calcium (8.5-10.1) mg/dL Phosphorus (2.6-4.7) mg/dL Magnesium (1.8-2.4) mg/dL Total Bilirubin (0.2-1.0) mg/dL AST (15-37) U/L ALT (14-59) U/L Alkaline Phosphatase (46-116) U/L Troponin I (0.000-0.056) ng/mL C-Reactive Protein (0.0-0.9) mg/dL Total Protein (6.4-8.2) g/dL Albumin (3.4-5.0) g/dL Globulin Albumin/Globulin Ratio TSH, Ultra Sensitive (0.36-3.74) uIU/mL Urine Color Dark yellow (YELLOW) Urine Appearance Slightly cloudy (CLEAR) Urine pH 6.0 (5.0-9.0) Ur Specific [place] >= 1.030 (1.005-1.030) Urine Protein >=300 H (NEGATIVE) Urine Glucose (UA) Negative (NEGATIVE) Urine Ketones Trace H (NEGATIVE) Urine Occult Blood Trace-intact H (NEGATIVE) Urine Nitrite Negative (NEGATIVE) Urine Bilirubin Small H (NEGATIVE) Urine Urobilinogen 0.2 (0.2-1.0) mg/dL Ur Leukocyte Esterase Small H (NEGATIVE) Urine RBC 0-5 /HPF Urine WBC 40-50 H (0-5/HPF) /HPF Ur Epithelial Cells Few (NOT SEEN) /HPF Triple Phos Crystals Few H (NOT SEEN) /HPF Amorphous Sediment Few (NOT SEEN) /HPF Urine Bacteria Few (0-FEW/HPF) /HPF Urine Mucus Rare (NOT SEEN) /LPF SARS CoV-2 RNA Rapid JENNIFER (NEGATIVE) Result Diagrams: 08/30/20 16:58 08/30/20 16:58 - Problem List (1) Vertigo SNOMED Code(s): 357119139 ICD Code: R42 - DIZZINESS AND GIDDINESS Status: Acute Current Visit: Yes (2) CAD (coronary artery disease) SNOMED Code(s): 02261360 ICD Code: I25.10 - ATHSCL HEART DISEASE OF [place] CORONARY ARTERY W/O ANG PCTRS Status: Acute Current Visit: Yes (3) Hypomagnesemia SNOMED Code(s): 602367786 ICD Code: E83.42 - HYPOMAGNESEMIA Status: Acute Current Visit: No (4) Nausea and vomiting SNOMED Code(s): 70897520 ICD Code: R11.2 - NAUSEA WITH VOMITING, UNSPECIFIED Status: Acute Current Visit: No Qualifiers: Vomiting type: unspecified Vomiting Intractability: unspecified Qualified Code(s): R11.2 - Nausea with vomiting, unspecified Problem List Initiated/Reviewed/Updated: Yes Orders Last 24hrs: Active Orders 24 hr Category Date Time Status Admission Diagnosis [ADT] Stat ADT 08/30/20 18:53 Ordered Admission Status [Patient Status] [ADT] Routine ADT 08/30/20 18:53 Active Antiembolic Devices [RC] PER UNIT ROUTINE Care 08/30/20 20:21 Active Blood Glucose Check, Bedside [RC] QIDACANDBED Care 08/30/20 20:20 Active Cardiac Monitoring [RC] . DIRECTED Care 08/30/20 18:53 Active EKG Documentation Completion [RC] STAT Care 08/30/20 16:53 Active Oxygen Therapy [RC] PRN Care 08/30/20 20:20 Active Peripheral IV Care [RC] . DIRECTED Care 08/30/20 20:21 Active Up With Assistance [RC] ASDIRECTED Care 08/30/20 20:20 Active VTE/DVT Education [RC] PER UNIT ROUTINE Care 08/30/20 20:20 Active Vital Signs [RC] Q4H Care 08/30/20 20:20 Active PT Evaluation and Treatment [CONS] Routine Cons 08/30/20 20:13 Active Consistent Carbohydrate Diet [DIET] Diet 08/30/20 Breakfast Active BASIC METABOLIC PANEL,BMP [CHEM] AM Lab 08/31/20 05:15 Ordered CBC WITH AUTO DIFF [HEME] AM Lab 08/31/20 05:15 Ordered MAGNESIUM [CHEM] AM Lab 08/31/20 05:11 Ordered PHOSPHORUS [CHEM] AM Lab 08/31/20 05:11 Ordered Acetaminophen [TylenoL] Med 08/30/20 20:20 Active 650 mg PO Q4H PRN Aspirin Med 08/31/20 09:00 Active 81 mg PO DAILY Dextrose 50% in Water Med 08/30/20 20:22 Active 25 ml IVPUSH Q1H PRN Dextrose 50% in Water Med 08/30/20 20:22 Active 50 ml IV ASDIRECTED PRN Docusate Sodium [Colace] Med 08/30/20 20:20 Active 100 mg PO BID PRN Enalapril [Vasotec] Med 08/31/20 09:00 Active 10 mg PO DAILY Escitalopram [Lexapro] Med 08/31/20 09:00 Active 10 mg PO DAILY Glucagon,Human Recombinant [GlucaGen] Med 08/30/20 20:22 Active 1 mg IM ASDIRECTED PRN Heparin Sodium Med 08/30/20 22:00 Active 5,000 units SUBCUT Q8HR Insulin Glarg,Human.Rec.Analog [LantUS] Med 08/30/20 21:00 Active 60 unit SUBCUT BEDTIME Insulin Lispro [HumaLOG] Med 08/30/20 21:00 Ordered See Protocol SUBCUT ACBED Isosorbide Mononitrate [Imdur] Med 08/31/20 09:00 Active 60 mg PO DAILY Magnesium Oxide Med 08/30/20 21:00 Active 500 mg PO TID Magnesium Sulfate/Water [Magnesium Sulfate in Water Med 08/30/20 20:15 Active Premix] 2 gm in 50 ml IV ONETIME Meclizine [Antivert] Med 08/30/20 21:00 Active 25 mg PO TID Metoprolol Succinate [Toprol XL] Med 08/31/20 09:00 Active 25 mg PO DAILY Multivitamin with Minerals [Multiple Vitamin] Med 08/31/20 09:00 Ordered 1 tab PO DAILY NS + KCl 20mEq/L [Normal Saline with 20 mEq KCl] 1,000 Med 08/30/20 20:30 Ordered ml IV ASDIRECTED Omeprazole Med 08/30/20 21:00 Ordered 20 mg PO BID Ondansetron [Zofran] Med 08/30/20 20:12 Ordered 4 mg IVPUSH Q4H PRN Promethazine [Phenergan] Med 08/30/20 20:20 Ordered 50 mg PO Q6H PRN Ranolazine Med 08/30/20 21:00 Ordered 500 mg PO BID Sodium Chloride 0.9% [Saline Flush] Med 08/30/20 20:20 Ordered 10 ml FLUSH ASDIRECTED PRN Tacrolimus [Protopic] Med 08/30/20 20:13 Ordered 1 squirt TOP BID PRN Temazepam [Restoril] Med 08/30/20 20:20 Ordered 15 mg PO BEDTIME PRN Antiembolic Hose [OM.PC] Per Unit Routine Oth 08/30/20 20:21 Ordered Peripheral IV Insertion Adult [OM.PC] Routine Oth 08/30/20 20:20 Ordered Resuscitation Status Routine Resus Stat 08/30/20 20:20 Ordered Medication Orders Acetaminophen (Tylenol) 650 mg PO Q4H PRN PRN Reason: Pain (Mild 1-3)/fever Aspirin (Aspirin) 81 mg PO DAILY [place] Dextrose/Water (Dextrose 50% In Water) 25 ml IVPUSH Q1H PRN PRN Reason: blood sugar <70 Dextrose/Water (Dextrose 50% In Water) 50 ml IV ASDIRECTED PRN PRN Reason: Hypoglycemia Docusate Sodium (Colace) 100 mg PO BID PRN PRN Reason: Constipation Enalapril Maleate (Vasotec) 10 mg PO DAILY COUNTS INCLUDE 234 BEDS AT THE [facility] Escitalopram Oxalate (Lexapro) 10 mg PO DAILY COUNTS INCLUDE 234 BEDS AT THE [facility] Glucagon (Glucagen) 1 mg IM ASDIRECTED PRN PRN Reason: Hypoglycemia Heparin Sodium (Porcine) (Heparin Sodium) 5,000 units SUBCUT Q8HR COUNTS INCLUDE 234 BEDS AT THE [facility] Magnesium Sulfate (Magnesium Sulfate In Water Premix) 2 gm in 50 mls @ 50 mls/hr IV ONETIME ONE Stop: 08/30/20 21:14 Last Admin: 08/30/20 19:38 Dose: 50 mls/hr Documented by: BOB Potassium Chloride/Sodium Chloride (Normal Saline With 20 Meq Kcl) 1,000 mls @ 75 mls/hr IV ASDIRECTED COUNTS INCLUDE 234 BEDS AT THE [facility] Insulin Glargine (Lantus) 60 unit SUBCUT BEDTIME COUNTS INCLUDE 234 BEDS AT THE [facility] Insulin Human Lispro (Humalog) 0 unit SUBCUT TIDAC COUNTS INCLUDE 234 BEDS AT THE [facility]; Protocol Isosorbide Mononitrate (Imdur) 60 mg PO DAILY COUNTS INCLUDE 234 BEDS AT THE [facility] Magnesium Oxide (Magnesium Oxide) 500 mg PO TID COUNTS INCLUDE 234 BEDS AT THE [facility] Stop: 08/31/20 14:01 Last Admin: 08/30/20 20:28 Dose: 500 mg Documented by: APRIL Meclizine HCl (Antivert) 25 mg PO TID COUNTS INCLUDE 234 BEDS AT THE [facility] Last Admin: 08/30/20 20:29 Dose: 25 mg Documented by: APRIL Metoprolol Succinate (Toprol Xl) 25 mg PO DAILY COUNTS INCLUDE 234 BEDS AT THE [facility] Multivitamins (Thera) 1 each PO DAILY COUNTS INCLUDE 234 BEDS AT THE [facility] Non-Formulary Medication (Ranolazine) 500 mg PO BID COUNTS INCLUDE 234 BEDS AT THE [facility] Non-Formulary Medication (Tacrolimus [Protopic]) 1 squirt TOP BID PRN PRN Reason: Rash Omeprazole (Omeprazole) 20 mg PO BID COUNTS INCLUDE 234 BEDS AT THE [facility] Ondansetron HCl (Zofran) 4 mg IVPUSH Q4H PRN PRN Reason: Nausea/Vomiting Promethazine HCl (Phenergan) 50 mg PO Q6H PRN PRN Reason: nausea, able to take PO Sodium Chloride (Saline Flush) 10 ml FLUSH ASDIRECTED PRN PRN Reason: Keep Vein Open Temazepam (Restoril) 15 mg PO BEDTIME PRN PRN Reason: Sleep Assessment/Plan Comment:: 64 years old lady who presented with sudden onset of the vertigo, positional vrtigo, associated with nausea. She does mention chest discomfort and some motor changes in the left upper extremity that are not present currently. Vertigo Appears benign positional vertigo Consult physical therapy for an evaluation Try to use meclizine cT of the head was negative Kinjal. fib on EKG Consider MRI of the brain for posterior stroke if no improvement in the meantime continue aspirin, statin she patient is not a candidate for TPA even if this represents an acute ischemic stroke monitor on telemetry Hypomagnesemia Give 2 g IV Start oral replacement Recheck electrolytes, magnesium, phosphorus, renal function in the morning Lactic acid elevation Likely secondary to nausea, vomiting No apparent sepsis Recheck lactic acid after hydration Hypertension, coronary artery disease Treat with imdur, aspirin Treat with enalapril, metoprolol Diabetes Hold metformin Continue Lantus Use supplemental insulin and hypoglycemia treatment as needed DVT prophylaxis with subcutaneous heparin
[2020-08-30] MEDS ORDERED: RANOLAZINE 500 MG PO SCH (21:00)
[2020-08-30] MEDS ORDERED: Insulin Glarg,Human.Rec.Analog 100 Unit/ML SUBCUT SCH (21:00)
[2020-08-30] MEDS: Heparin Sodium 5,000 Units/ML Vial SUBCUT SCH (21:31)
[2020-08-31] MEDS: Heparin Sodium 5,000 Units/ML Vial SUBCUT SCH (06:10)
[2020-08-31 07:23] LABS: ANION GAP 12.9 mEq/L (7-13); CHLORIDE,CL 103 mmol/L (98-107); SODIUM,NA 141 mmol/L (136-145)
[2020-08-31] MEDS ORDERED: Multivitamins,Therapeutic Tab PO SCH (09:00)
[2020-08-31] MEDS ORDERED: Aspirin 81 MG Tab.Chew PO SCH (09:00)
[2020-08-31] MEDS ORDERED: Escitalopram 10 MG Tab PO SCH (09:00)
[2020-08-31] MEDS ORDERED: Metoprolol Succinate 25 MG Tab.ER PO SCH (09:00)
[2020-08-31] MEDS ORDERED: Isosorbide Mononitrate 60 MG Tab.ER PO SCH (09:00)
[2020-08-31] MEDS: Meclizine 12.5 MG Tab PO SCH (09:20)
[2020-08-31] MEDS: Omeprazole 20 MG Cap.CR PO SCH (09:20)
[2020-08-31] MEDS: Insulin Lispro 100 Units/ML 3 ML Vial SUBCUT SCH ×2 (09:27→12:37)
[2020-08-31 09:33] VITALS: BP 140/53; PULSE 73
--- NOTE | 2020-08-31 10:22 | PCM.DCSUM1 ---
Discharge Summary - Hospital Course Free Text/Narrative:: 64 years old lady who presented with sudden onset of the vertigo, positional vrtigo, associated with nausea. She does mention chest discomfort and some motor changes in the left upper extremity that are not present currently. Vertigo Appears benign positional vertigo improved with meclizine f/up with out pt pt cT of the head was negative Kin[place]al. fib on EKG Consider MRI of the brain for posterior stroke if recurrent symptoms in the meantime continue aspirin, statin Hypomagnesemia Given 2 g IV cont oral replacement Lactic acid elevation Likely secondary to nausea, vomiting, metformin No apparent sepsis Hypertension, coronary artery disease Treat with imdur, aspirin Treat with enalapril, metoprolol Diabetes resume metformin Continue Lantus Diagnosis: Stroke: No - Discharge Data Discharge Date: 08/31/20 Discharge Disposition: Home, Self-Care 01 Condition: Stable - Referral to Home Health Primary Care Physician: Afua Wong, BANKING MANAGER - Discharge Diagnosis/Problem(s) (1) Vertigo SNOMED Code(s): 147132841 ICD Code: R42 - DIZZINESS AND GIDDINESS Status: Acute Current Visit: Yes (2) CAD (coronary artery disease) SNOMED Code(s): 52360484 ICD Code: I25.10 - ATHSCL HEART DISEASE OF [place] CORONARY ARTERY W/O ANG PCTRS Status: Acute Current Visit: Yes (3) Hypomagnesemia SNOMED Code(s): 337471774 ICD Code: E83.42 - HYPOMAGNESEMIA Status: Acute Current Visit: No (4) Nausea and vomiting SNOMED Code(s): 65762317 ICD Code: R11.2 - NAUSEA WITH VOMITING, UNSPECIFIED Status: Acute Current Visit: No Qualifiers: Vomiting type: unspecified Vomiting Intractability: unspecified Qualified Code(s): R11.2 - Nausea with vomiting, unspecified - Patient Summary/Data Consults: Consultations 08/30/20 20:13 PT Evaluation and Treatment [CONS] Routine - Discharge Plan *PRESCRIPTION DRUG MONITORING PROGRAM REVIEWED*: Not Applicable *COPY OF PRESCRIPTION DRUG MONITORING REPORT IN PATIENT LANA: Not Applicable Prescriptions/Med Rec: Meclizine [Antivert] 25 mg PO TID #6 tablet Magnesium Oxide 250 mg PO TID #9 tablet Home Medications: Home Meds Aspirin [Yina Chewable Aspirin] 81 mg PO DAILY 11/06/13 [History] Enalapril Maleate 10 mg PO DAILY 11/06/13 [History] Insulin Glarg,Human.Rec.Analog [Lantus Solostar] 68 units SUBCUT ACBED 11/06/13 [History] Isosorbide Mononitrate [Isosorbide Mononitrate ER] 60 mg PO DAILY 11/06/13 [History] Omeprazole 1 tab PO BID 11/06/13 [History] metFORMIN [Glucophage] 1 tab PO BID 11/06/13 [History] Acetaminophen [Tylenol Extra Strength] 1 tab PO Q6H 02/21/16 [History] Albuterol Sulfate [Proair Hfa] 2 puff INH ASDIRECTED PRN 02/21/16 [History] Albuterol/Ipratropium [DuoNeb 3.0-0.5 MG/3 ML] 1 bottle INH BID PRN 02/21/16 [History] Codeine/guaiFENesin [Robitussin AC] 5 ml PO BEDTIME PRN 02/21/16 [History] Multivitamin with Minerals [Multiple Vitamin] 1 tab PO DAILY 02/21/16 [History] Nitroglycerin [Nitrostat] 1 tab SL ASDIRECTED PRN 02/21/16 [History] Tacrolimus [Protopic] 1 squirt TOP BID PRN 02/21/16 [History] Escitalopram [Lexapro] 10 mg PO DAILY 03/05/19 [History] Metoprolol Succinate [Toprol Xl] 25 mg PO DAILY 03/05/19 [History] Ranolazine [Ranolazine ER] 500 mg PO BID 03/05/19 [History] Magnesium Oxide 250 mg PO TID #9 tablet 08/31/20 [Rx] Meclizine [Antivert] 25 mg PO TID #6 tablet 08/31/20 [Rx] Oxygen Therapy Mode: Room Air Forms: ED Department Discharge Referrals: Afua Wong NP [Primary Care Provider] - - Discharge Summary/Plan Comment DC Time >30 min.: Yes - General Info Date of Service: 08/31/20 - Review of Systems General: Denies: Fever, Weakness Cardiovascular: Denies: Chest Pain, Palpitations Neurological: Reports: Other (no vertigo). Denies: Confusion, Dizziness, Syncope, Tingling, Tremors, Weakness - Patient Data Vitals - Most Recent: Last Vital Signs Temp 97.2 F 08/31/20 08:00 Pulse 73 08/31/20 09:22 Resp 20 08/31/20 08:00 BP 140/53 L 08/31/20 09:22 Pulse Ox 96 08/31/20 08:00 Weight - Most Recent: 235 lb I&O - Last 24 hours: Intake & Output 08/30/20 08/31/20 08/31/20 22:59 06:59 14:59 Intake Total 240 Balance 240 Lab Results - Last 24 hrs: Laboratory Results - last 24 hr 08/30/20 08/30/20 08/30/20 Range/Units 16:55 16:58 16:58 WBC 9.6 (5.0-10.0) 10^3/uL RBC 5.01 (4.2-5.4) 10^6/uL Hgb 14.7 (12.0-16.0) g/dL Hct 43.3 (37.0-47.0) % MCV 86.4 D (80-100) fL MCH 29.3 (27.0-34.0) pg MCHC 33.9 (33.0-35.0) g/dL Plt Count 301 (150-450) 10^3/uL Neut % (Auto) 56.0 (42.2-75.2) % Lymph % (Auto) 35.2 (20.5-50.1) % Sutton % (Auto) 7.6 (2-8) % Eos % (Auto) 0.8 L (1.0-3.0) % Baso % (Auto) 0.4 (0.0-1.0) % Sodium 140 (136-145) mmol/L Potassium 4.1 (3.5-5.1) mmol/L Chloride 100 (98-107) mmol/L Carbon Dioxide 27 (21-32) mmol/L Anion Gap 17.1 H (7-13) mEq/L BUN 14 (7-18) mg/dL Creatinine 1.07 H (0.55-1.02) mg/dL Est Cr Clr Drug Dosing 48.42 mL/min Estimated GFR (MDRD) 51 BUN/Creatinine Ratio 13.1 (No establ ref range) Glucose 134 H (74-99) mg/dL POC Glucose (70-105) mg/dl Lactic Acid (0.4-2.0) mmol/L Calcium 9.2 (8.5-10.1) mg/dL Phosphorus 4.3 (2.6-4.7) mg/dL Magnesium 1.1 L (1.8-2.4) mg/dL Total Bilirubin 0.3 (0.2-1.0) mg/dL AST 17 (15-37) U/L ALT 25 (14-59) U/L Alkaline Phosphatase 93 (46-116) U/L Troponin I < 0.017 (0.000-0.056) ng/mL C-Reactive Protein 0.5 (0.0-0.9) mg/dL Total Protein 7.6 (6.4-8.2) g/dL Albumin 3.6 (3.4-5.0) g/dL Globulin 4.0 Albumin/Globulin Ratio 0.9 TSH, Ultra Sensitive 2.14 (0.36-3.74) uIU/mL Urine Color (YELLOW) Urine Appearance (CLEAR) Urine pH (5.0-9.0) Ur Specific [place] (1.005-1.030) Urine Protein (NEGATIVE) Urine Glucose (UA) (NEGATIVE) Urine Ketones (NEGATIVE) Urine Occult Blood (NEGATIVE) Urine Nitrite (NEGATIVE) Urine Bilirubin (NEGATIVE) Urine Urobilinogen (0.2-1.0) mg/dL Ur Leukocyte Esterase (NEGATIVE) Urine RBC /HPF Urine WBC (0-5/HPF) /HPF Ur Epithelial Cells (NOT SEEN) /HPF Triple Phos Crystals (NOT SEEN) /HPF Amorphous Sediment (NOT SEEN) /HPF Urine Bacteria (0-FEW/HPF) /HPF Urine Mucus (NOT SEEN) /LPF SARS CoV-2 RNA Rapid JENNIFER Negative (NEGATIVE) 08/30/20 08/30/20 08/30/20 Range/Units 16:58 18:12 20:40 WBC (5.0-10.0) 10^3/uL RBC (4.2-5.4) 10^6/uL Hgb (12.0-16.0) g/dL Hct (37.0-47.0) % MCV (80-100) fL MCH (27.0-34.0) pg MCHC (33.0-35.0) g/dL Plt Count (150-450) 10^3/uL Neut % (Auto) (42.2-75.2) % Lymph % (Auto) (20.5-50.1) % Sutton % (Auto) (2-8) % Eos % (Auto) (1.0-3.0) % Baso % (Auto) (0.0-1.0) % Sodium (136-145) mmol/L Potassium (3.5-5.1) mmol/L Chloride (98-107) mmol/L Carbon Dioxide (21-32) mmol/L Anion Gap (7-13) mEq/L BUN (7-18) mg/dL Creatinine (0.55-1.02) mg/dL Est Cr Clr Drug Dosing mL/min Estimated GFR (MDRD) BUN/Creatinine Ratio (No establ ref range) Glucose (74-99) mg/dL POC Glucose 148 H (70-105) mg/dl Lactic Acid 2.2 H* (0.4-2.0) mmol/L Calcium (8.5-10.1) mg/dL Phosphorus (2.6-4.7) mg/dL Magnesium (1.8-2.4) mg/dL Total Bilirubin (0.2-1.0) mg/dL AST (15-37) U/L ALT (14-59) U/L Alkaline Phosphatase (46-116) U/L Troponin I (0.000-0.056) ng/mL C-Reactive Protein (0.0-0.9) mg/dL Total Protein (6.4-8.2) g/dL Albumin (3.4-5.0) g/dL Globulin Albumin/Globulin Ratio TSH, Ultra Sensitive (0.36-3.74) uIU/mL Urine Color Dark yellow (YELLOW) Urine Appearance Slightly cloudy (CLEAR) Urine pH 6.0 (5.0-9.0) Ur Specific [place] >= 1.030 (1.005-1.030) Urine Protein >=300 H (NEGATIVE) Urine Glucose (UA) Negative (NEGATIVE) Urine Ketones Trace H (NEGATIVE) Urine Occult Blood Trace-intact H (NEGATIVE) Urine Nitrite Negative (NEGATIVE) Urine Bilirubin Small H (NEGATIVE) Urine Urobilinogen 0.2 (0.2-1.0) mg/dL Ur Leukocyte Esterase Small H (NEGATIVE) Urine RBC 0-5 /HPF Urine WBC 40-50 H (0-5/HPF) /HPF Ur Epithelial Cells Few (NOT SEEN) /HPF Triple Phos Crystals Few H (NOT SEEN) /HPF Amorphous Sediment Few (NOT SEEN) /HPF Urine Bacteria Few (0-FEW/HPF) /HPF Urine Mucus Rare (NOT SEEN) /LPF SARS CoV-2 RNA Rapid JENNIFER (NEGATIVE) 08/31/20 08/31/20 08/31/20 Range/Units 06:36 06:36 08:06 WBC 9.2 (5.0-10.0) 10^3/uL RBC 4.68 (4.2-5.4) 10^6/uL Hgb 14.0 (12.0-16.0) g/dL Hct 41.5 (37.0-47.0) % MCV 88.7 (80-100) fL MCH 29.9 (27.0-34.0) pg MCHC 33.7 (33.0-35.0) g/dL Plt Count 281 (150-450) 10^3/uL Neut % (Auto) 39.1 L (42.2-75.2) % Lymph % (Auto) 51.2 H (20.5-50.1) % Sutton % (Auto) 7.9 (2-8) % Eos % (Auto) 1.3 (1.0-3.0) % Baso % (Auto) 0.5 (0.0-1.0) % Sodium 141 (136-145) mmol/L Potassium 3.9 (3.5-5.1) mmol/L Chloride 103 (98-107) mmol/L Carbon Dioxide 29 (21-32) mmol/L Anion Gap 12.9 (7-13) mEq/L BUN 16 (7-18) mg/dL Creatinine 0.86 (0.55-1.02) mg/dL Est Cr Clr Drug Dosing 60.24 mL/min Estimated GFR (MDRD) > 60 BUN/Creatinine Ratio (No establ ref range) Glucose 107 H (74-99) mg/dL POC Glucose 109 H (70-105) mg/dl Lactic Acid (0.4-2.0) mmol/L Calcium 9.0 (8.5-10.1) mg/dL Phosphorus 4.0 (2.6-4.7) mg/dL Magnesium 1.7 L (1.8-2.4) mg/dL Total Bilirubin (0.2-1.0) mg/dL AST (15-37) U/L ALT (14-59) U/L Alkaline Phosphatase (46-116) U/L Troponin I (0.000-0.056) ng/mL C-Reactive Protein (0.0-0.9) mg/dL Total Protein (6.4-8.2) g/dL Albumin (3.4-5.0) g/dL Globulin Albumin/Globulin Ratio TSH, Ultra Sensitive (0.36-3.74) uIU/mL Urine Color (YELLOW) Urine Appearance (CLEAR) Urine pH (5.0-9.0) Ur Specific [place] (1.005-1.030) Urine Protein (NEGATIVE) Urine Glucose (UA) (NEGATIVE) Urine Ketones (NEGATIVE) Urine Occult Blood (NEGATIVE) Urine Nitrite (NEGATIVE) Urine Bilirubin (NEGATIVE) Urine Urobilinogen (0.2-1.0) mg/dL Ur Leukocyte Esterase (NEGATIVE) Urine RBC /HPF Urine WBC (0-5/HPF) /HPF Ur Epithelial Cells (NOT SEEN) /HPF Triple Phos Crystals (NOT SEEN) /HPF Amorphous Sediment (NOT SEEN) /HPF Urine Bacteria (0-FEW/HPF) /HPF Urine Mucus (NOT SEEN) /LPF SARS CoV-2 RNA Rapid JENNIFER (NEGATIVE) Med Orders - Current: Current Medications Acetaminophen (Tylenol) 650 mg PO Q4H PRN PRN Reason: Pain (Mild 1-3)/fever Aspirin (Aspirin) 81 mg PO DAILY [facility] Last Admin: 08/31/20 09:20 Dose: 81 mg Documented by: Dextrose/Water (Dextrose 50% In Water) 25 ml IVPUSH Q1H PRN PRN Reason: blood sugar <70 Dextrose/Water (Dextrose 50% In Water) 50 ml IV ASDIRECTED PRN PRN Reason: Hypoglycemia Docusate Sodium (Colace) 100 mg PO BID PRN PRN Reason: Constipation Enalapril Maleate (Vasotec) 10 mg PO DAILY [facility] Last Admin: 08/31/20 09:21 Dose: 10 mg Documented by: Escitalopram Oxalate (Lexapro) 10 mg PO DAILY [facility] Last Admin: 08/31/20 09:33 Dose: 10 mg Documented by: Glucagon (Glucagen) 1 mg IM ASDIRECTED PRN PRN Reason: Hypoglycemia Heparin Sodium (Porcine) (Heparin Sodium) 5,000 units SUBCUT Q8HR [facility] Last Admin: 08/31/20 06:10 Dose: 5,000 units Documented by: Potassium Chloride/Sodium Chloride (Normal Saline With 20 Meq Kcl) 1,000 mls @ 75 mls/hr IV ASDIRECTED [facility] Last Admin: 08/30/20 20:42 Dose: 75 mls/hr Documented by: Insulin Glargine (Lantus) 60 unit SUBCUT BEDTIME [facility] Last Admin: 08/30/20 20:45 Dose: 60 units Documented by: Insulin Human Lispro (Humalog) 0 unit SUBCUT TIDAC [facility]; Protocol Last Admin: 08/31/20 09:27 Dose: Not Given Documented by: Isosorbide Mononitrate (Imdur) 60 mg PO DAILY [facility] Last Admin: 08/31/20 09:21 Dose: 60 mg Documented by: Magnesium Oxide (Magnesium Oxide) 500 mg PO TID [facility] Stop: 08/31/20 14:01 Last Admin: 08/31/20 09:20 Dose: 500 mg Documented by: Meclizine HCl (Antivert) 25 mg PO TID [facility] Last Admin: 08/31/20 09:20 Dose: 25 mg Documented by: Metoprolol Succinate (Toprol Xl) 25 mg PO DAILY [facility] Last Admin: 08/31/20 09:22 Dose: 25 mg Documented by: Multivitamins (Thera) 1 each PO DAILY [facility] Last Admin: 08/31/20 09:19 Dose: 1 each Documented by: Non-Formulary Medication (Ranolazine) 500 mg PO BID [facility] Non-Formulary Medication (Tacrolimus [Protopic]) 1 squirt TOP BID PRN PRN Reason: Rash Omeprazole (Omeprazole) 20 mg PO BID [facility] Last Admin: 08/31/20 09:20 Dose: 20 mg Documented by: Ondansetron HCl (Zofran) 4 mg IVPUSH Q4H PRN PRN Reason: Nausea/Vomiting Promethazine HCl (Phenergan) 50 mg PO Q6H PRN PRN Reason: nausea, able to take PO Sodium Chloride (Saline Flush) 10 ml FLUSH ASDIRECTED PRN PRN Reason: Keep Vein Open Temazepam (Restoril) 15 mg PO BEDTIME PRN PRN Reason: Sleep Last Admin: 08/30/20 22:38 Dose: 15 mg Documented by: Discontinued Medications Magnesium Sulfate (Magnesium Sulfate In Water Premix) 4 gm in 100 mls @ 300 mls/hr IV ONETIME ONE Stop: 08/30/20 18:54 Last Admin: 08/30/20 20:12 Dose: Not Given Documented by: Sodium Chloride (Normal Saline) 500 mls @ 500 mls/hr IV .BOLUS ONE Stop: 08/30/20 19:35 Last Admin: 08/30/20 18:47 Dose: 500 mls/hr Documented by: Magnesium Sulfate (Magnesium Sulfate In Water Premix) Confirm Administered Dose 2 gm in 50 mls @ as directed .ROUTE .STK-MED ONE Stop: 08/30/20 20:05 Last Admin: 08/30/20 20:07 Dose: Not Given Documented by: Magnesium Sulfate (Magnesium Sulfate In Water Premix) 2 gm in 50 mls @ 50 mls/hr IV ONETIME ONE Stop: 08/30/20 21:03 Last Admin: 08/30/20 20:12 Dose: Not Given Documented by: Magnesium Sulfate (Magnesium Sulfate In Water Premix) 2 gm in 50 mls @ 50 mls/hr IV ONETIME ONE Stop: 08/30/20 21:14 Last Infusion: 08/30/20 20:48 Dose: Infused Documented by: - Exam General: Reports: Alert, Oriented Neck: Reports: Supple Lungs: Reports: Clear to Auscultation, Normal Respiratory Effort Cardiovascular: Reports: Regular Rate, Regular Rhythm Extremities: No Pedal Edema Skin: Reports: Warm, Dry Psy/Mental Status: Reports: Alert, Normal Affect, Normal Mood
== END 2020-08-31 12:30 | disposition home or self-care (01) ==
LOC: DL.ED 16:33 → DL.MS 18:53
PROVIDERS: ADMIT Internal Medicine; ATTEND Internal Medicine
DX: R42 Dizziness and giddiness (principal); E83.42 Hypomagnesemia; R74.8 Abnormal levels of other serum enzymes; I10 Essential (primary) hypertension; I25.10 Atherosclerotic heart disease of native coronary artery without angina pectoris; E11.9 Type 2 diabetes mellitus without complications; R11.2 Nausea with vomiting, unspecified; J44.9 Chronic obstructive pulmonary disease, unspecified; E78.00 Pure hypercholesterolemia, unspecified; G47.30 Sleep apnea, unspecified; E66.9 Obesity, unspecified; Z87.891 Personal history of nicotine dependence; Z88.5 Allergy status to narcotic agent; Z20.828 Contact with and (suspected) exposure to other viral communicable diseases; Z79.899 Other long term (current) drug therapy; Z88.8 Allergy status to other drugs, medicaments and biological substances; Z68.37 Body mass index [BMI] 37.0-37.9, adult
CPT/HCPCS: 36415; 70450; 71045; 80048; 80053; 81001; 82962; 83605; 83735; 84100; 84443; 84484; 85025; 86140; 93005; 96365; 96372; 97161; 99285; A9270; G0378; J1644; J1815; J3475; J3480; J7030; U0002

== ENCOUNTER 2021-03-21 09:27 | Emergency (ER) | payer MEDICARE, OTHER ==
[2021-03-21 09:41] VITALS: BP 173/60; PULSE 82
[2021-03-21] MEDS ORDERED: diphenhydrAMINE 50 MG/ML SDV IVPUSH ONE (09:45)
--- NOTE | 2021-03-21 10:20 | EDM.PDOC ---
ED HPI GENERAL MEDICAL PROBLEM - General Chief Complaint: Allergic Reaction Stated Complaint: allergic reaction Time Seen by Provider: 03/21/21 10:10 Source of Information: Reports: Patient History Limitations: Reports: No Limitations - History of Present Illness INITIAL COMMENTS - FREE TEXT/NARRATIVE: This 65 yo female patient reports to the ED after having a CT with contrast done. After the CT, the patient noticed some itching in her legs and welts on her arms and legs. The patient denied difficulties breathing or swelling in her throat. Onset: Today, Sudden Duration: Minutes: Quality: Reports: Other Severity: Mild Improves with: Reports: None Worsens with: Reports: None Context: Reports: Other Associated Symptoms: Reports: No Other Symptoms - Related Data Allergies Allergy/AdvReac Type Severity Reaction Status Date / Time atorvastatin calcium Allergy Muscle Verified 03/21/21 09:31 [From Lipitor] Aches cerivastatin sodium Allergy Muscle Verified 03/21/21 09:31 [From Baycol] Aches hydrocodone Allergy Disorientat Verified 03/21/21 09:31 ion Iodinated Contrast Media Allergy Hives Verified 03/21/21 09:49 lovastatin [From Mevacor] Allergy Nausea and Verified 03/21/21 09:31 Vomiting oxycodone [Oxycodone] Allergy Disorientat Verified 03/21/21 09:31 ion pravastatin Allergy Muscle Verified 03/21/21 09:31 Aches simvastatin [From Zocor] Allergy Muscle Verified 03/21/21 09:31 Aches tramadol Allergy Itching Verified 03/21/21 09:31 prednisone AdvReac Anxiety Verified 03/21/21 09:31 IV contrast Allergy Hives Uncoded 03/21/21 09:48 Home Meds: Home Meds Aspirin [Yina Chewable Aspirin] 81 mg PO DAILY 11/06/13 [History] Enalapril Maleate 10 mg PO DAILY 11/06/13 [History] Insulin Glarg,Human.Rec.Analog [Lantus Solostar] 68 units SUBCUT BEDTIME 11/06/13 [History] Isosorbide Mononitrate [Isosorbide Mononitrate ER] 60 mg PO DAILY 11/06/13 [History] Omeprazole 20 tab PO BID 11/06/13 [History] metFORMIN [Glucophage] 1,000 mg PO BID 11/06/13 [History] Acetaminophen [Tylenol Extra Strength] 500 mg PO Q6H 02/21/16 [History] Albuterol Sulfate [Proair Hfa] 2 puff INH ASDIRECTED PRN 02/21/16 [History] Albuterol/Ipratropium [DuoNeb 3.0-0.5 MG/3 ML] 1 bottle INH BID PRN 02/21/16 [History] Codeine/guaiFENesin [Robitussin AC] 5 ml PO BEDTIME PRN 02/21/16 [History] Multivitamin with Minerals [Multiple Vitamin] 1 tab PO DAILY 02/21/16 [History] Nitroglycerin [Nitrostat] 1 tab SL ASDIRECTED PRN 02/21/16 [History] Tacrolimus [Protopic] 1 squirt TOP BID PRN 02/21/16 [History] Escitalopram [Lexapro] 10 mg PO DAILY 03/05/19 [History] Metoprolol Succinate [Toprol Xl] 25 mg PO DAILY 03/05/19 [History] Magnesium Oxide 250 mg PO TID #9 tablet 08/31/20 [Rx] Meclizine [Antivert] 25 mg PO TID #6 tablet 08/31/20 [Rx] Past Medical History HEENT History: Reports: Impaired Vision Cardiovascular History: Reports: Heart Murmur, High Cholesterol, Hypertension Respiratory History: Reports: COPD, Sleep Apnea Other Respiratory History: "mushroom lung" Gastrointestinal History: Reports: Diverticulosis, GERD 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 History: Reports: None [employer] WORK[employer] History: Reports: Musculoskeletal History: Reports: Arthritis, Back Pain, Chronic Neurological History: Reports: Other (See Below) Other Neuro History: RESTLESS LEG SYNDROME Psychiatric History: Reports: None Endocrine/Metabolic History: Reports: Diabetes, Type II, Obesity/BMI 30+ Hematologic History: Reports: None Immunologic History: Reports: None Oncologic (Cancer) History: Reports: None Other Dermatologic History: "autoimmune disorder of the skin" - Infectious Disease History Infectious Disease History: Reports: Chicken Pox, Measles, Mumps Other Infectious Disease History: Covid 09/2020 - Past Surgical History Head Surgeries/Procedures: Reports: None Other HEENT Surgeries/Procedures: VOCAL CORD SURG Other Cardiovascular Surgeries/Procedures: ANGIOGRAM Respiratory Surgical History: Reports: None GI Surgical History: Reports: Appendectomy, Cholecystectomy, Colonoscopy, EGD Female Surgical History: Reports: Hysterectomy Neurological Surgical History: Reports: None Musculoskeletal Surgical History: Reports: None Social & Family History - Family History Family Medical History: No Pertinent Family History - Tobacco Use Tobacco Use Status *Q: Former Tobacco User Used Tobacco, but Quit: Yes Month/Year Tobacco Last Used: 10/2005 - Caffeine Use Caffeine Use: Reports: Coffee - Recreational Drug Use Recreational Drug Use: No - Living Situation & Occupation Living situation: Reports: , with Spouse ED ROS ALLERGIC REACTION - Review of Systems Review Of Systems: Comprehensive ROS is negative, except as noted in HPI. ED EXAM GENERAL NO PERIP PULSE - Physical Exam Exam: See Below Exam Limited By: No Limitations General Appearance: Alert, WD/WN, Mild Distress Eye Exam: Bilateral Eye: EOMI, Normal Inspection, PERRL Ears: Normal External Exam, Normal Canal, Hearing Grossly Normal, Normal TMs Nose: Normal Inspection, Normal Mucosa, No Blood Throat/Mouth: Normal Inspection, Normal Lips, Normal Teeth, Normal Gums, Normal Oropharynx, Normal Voice, No Airway Compromise Head: Atraumatic, Normocephalic Neck: Normal Inspection, Supple, Non-Tender, Full Range of Motion Respiratory/Chest: No Respiratory Distress, Lungs Clear, Normal Breath Sounds, No Accessory Muscle Use, Chest Non-Tender Cardiovascular: Normal Peripheral Pulses, Regular Rate, Rhythm, No Edema, No Gallop, No JVD, No Murmur, No Rub GI/Abdominal: Normal Bowel Sounds, Soft, Non-Tender, No Organomegaly, No Di stention, No Abnormal Bruit, No Mass (Female) Exam: Deferred Rectal (Female) Exam: Deferred Back Exam: Normal Inspection, Full Range of Motion, NT Extremities: Normal Range of Motion, Non-Tender, No Pedal Edema, Normal Capillary Refill Neurological: Alert, Oriented, CN II-XII Intact, Normal Cognition, Normal Gait, Normal Reflexes, No Motor/Sensory Deficits Psychiatric: Normal Affect, Normal Mood Skin Exam: Warm, Dry, Other (faint welts on her upper and lower extremities. ) Lymphatic: No Adenopathy Course - Vital Signs Last Recorded V/S: Last Vital Signs Temp 97.3 F 03/21/21 09:32 Pulse 82 03/21/21 09:32 Resp 18 03/21/21 09:32 BP 173/60 H 03/21/21 09:32 Pulse Ox 95 03/21/21 09:32 - Orders/Labs/Meds Meds: Medications Discontinued Medications Generic Name Dose Route Start Last Admin Trade Name Vlad PRN Reason Stop Dose Admin Diphenhydramine HCl 25 mg 03/21/21 09:45 03/21/21 09:30 Diphenhydramine 50 Mg/Ml Sdv IVPUSH 03/21/21 09:46 25 mg ONETIME ONE Administration Departure - Departure Time of Disposition: 10:14 Disposition: Home, Self-Care 01 Condition: Fair Clinical Impression: Allergic reaction to contrast dye Qualifiers: Encounter type: initial encounter Qualified Code(s): T50.8X5A - Adverse effect of diagnostic agents, initial encounter - Discharge Information *PRESCRIPTION DRUG MONITORING PROGRAM REVIEWED*: Not Applicable *COPY OF PRESCRIPTION DRUG MONITORING REPORT IN PATIENT LANA: Not Applicable Forms: ED Department Discharge Care Plan Goals: The patient was advised of the examination results during the visit. The patient was given an IV dose of Benadryl while in the ED with symptom resolution. The patient was encouraged to continue to monitor for any additional symptoms. If the patient has any additional symptoms or concerns, the patient should either return to the emergency department or visit her primary care facility. Sepsis Event Note (ED) - Evaluation Sepsis Screening Result: No Definite Risk - Focused Exam Vital Signs: Vital Signs Temp Pulse Resp BP Pulse Ox 03/21/21 09:32 97.3 F 82 18 173/60 H 95
== END 2021-03-21 10:23 | disposition home or self-care (01) ==
LOC: DL.ED 09:27
DX: L29.9 Pruritus, unspecified (principal); T50.8X5A Adverse effect of diagnostic agents, initial encounter; I10 Essential (primary) hypertension; K21.9 Gastro-esophageal reflux disease without esophagitis; G25.81 Restless legs syndrome; M19.90 Unspecified osteoarthritis, unspecified site; E11.9 Type 2 diabetes mellitus without complications; Z88.5 Allergy status to narcotic agent; Z91.041 Radiographic dye allergy status; Z79.82 Long term (current) use of aspirin; Z79.4 Long term (current) use of insulin; Z79.899 Other long term (current) drug therapy; Z88.8 Allergy status to other drugs, medicaments and biological substances; Z87.891 Personal history of nicotine dependence
CPT/HCPCS: 96374; 99283; J1200

== ENCOUNTER 2021-06-12 00:20 | Observation (INO) | payer MEDICARE, OTHER ==
--- NOTE | 2021-06-12 01:14 | EDM.PDOC ---
ED HPI GENERAL MEDICAL PROBLEM - General Chief Complaint: Respiratory Problem Stated Complaint: AMBULANCE Time Seen by Provider: 06/12/21 01:11 Source of Information: Reports: Patient, EMS, EMS Notes Reviewed, Family, RN, RN Notes Reviewed History Limitations: Reports: No Limitations - History of Present Illness INITIAL COMMENTS - FREE TEXT/NARRATIVE: Patient is a 65-year-old female who presents [facility] with complaint of shortness of breath, back pain, chills, cough. Patient states she has been sick since last week, saw her primary care provider in the clinic on Friday. Azithromycin was ordered for the patient but the [facility] 7 [facility] 10 days to receive the medications. Friday morning the patient did call her provider and the medication was reordered to a local pharmacy. She did take the first dose on Friday. Patient states she has a history of COPD. Does have duo nebs on her past medication history, but states she has been out of this for quite some time. Patient states she was given a nebulizer in the ambulance on her way in and this did make her feel better. Patient states she had COVID 19 in September 2020, was vaccinated in November or December for COVID. Patient states her has been ill, and states her daughter came from out of state with her children and the children have been ill with upper respiratory infections and fevers. Patient states she does not use oxygen at home. Onset: Gradual Middle Back Pain Score (Numeric/FACES): 3 - Related Data Allergies Allergy/AdvReac Type Severity Reaction Status Date / Time atorvastatin calcium Allergy Muscle Verified 03/21/21 09:31 [From Lipitor] Aches cerivastatin sodium Allergy Muscle Verified 03/21/21 09:31 [From Baycol] Aches hydrocodone Allergy Disorientat Verified 03/21/21 09:31 ion Iodinated Contrast Media Allergy Hives Verified 03/21/21 09:49 lovastatin [From Mevacor] Allergy Nausea and Verified 03/21/21 09:31 Vomiting oxycodone [Oxycodone] Allergy Disorientat Verified 03/21/21 09:31 ion pravastatin Allergy Muscle Verified 03/21/21 09:31 Aches simvastatin [From Zocor] Allergy Muscle Verified 03/21/21 09:31 Aches tramadol Allergy Itching Verified 03/21/21 09:31 prednisone AdvReac Anxiety Verified 03/21/21 09:31 IV contrast Allergy Hives Uncoded 03/21/21 09:48 Home Meds: Home Meds Enalapril Maleate 10 mg PO DAILY 11/06/13 [History] Insulin Glarg,Human.Rec.Analog [Lantus Solostar] 68 units SUBCUT BEDTIME 11/06/13 [History] Omeprazole 20 tab PO BID 11/06/13 [History] metFORMIN [Glucophage] 1,000 mg PO BID 11/06/13 [History] Acetaminophen [Tylenol Extra Strength] 500 mg PO Q6H 02/21/16 [History] Albuterol Sulfate [Proair Hfa] 2 puff INH ASDIRECTED PRN 02/21/16 [History] Albuterol/Ipratropium [DuoNeb 3.0-0.5 MG/3 ML] 1 bottle INH BID PRN 02/21/16 [History] Multivitamin with Minerals [Multiple Vitamin] 1 tab PO DAILY 02/21/16 [History] Nitroglycerin [Nitrostat] 1 tab SL ASDIRECTED PRN 02/21/16 [History] Escitalopram [Lexapro] 10 mg PO DAILY 03/05/19 [History] Metoprolol Succinate [Toprol Xl] 25 mg PO DAILY 03/05/19 [History] Aspirin [Aspirin EC] 81 mg PO DAILY 06/12/21 [History] Azithromycin [Zithromax] 250 mg PO DAILY 06/12/21 [History] Cholecalciferol (Vitamin D3) [Vitamin D3] 125 mcg PO DAILY 06/12/21 [History] Ezetimibe [Zetia] 10 mg PO DAILY 06/12/21 [History] Fenofibrate Nanocrystallized [Fenofibrate] 145 mg PO DAILY 06/12/21 [History] Isosorbide Mononitrate [Isosorbide Mononitrate ER] 60 mg PO DAILY 06/12/21 [History] Ranolazine [Ranolazine ER] 500 mg PO BID 06/12/21 [History] Past Medical History HEENT History: Reports: Impaired Vision Cardiovascular History: Reports: Heart Murmur, High Cholesterol, Hypertension Respiratory History: Reports: COPD, Sleep Apnea Other Respiratory History: "mushroom lung" Gastrointestinal History: Reports: Diverticulosis, GERD 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 History: Reports: None MILLER FIRST History: Reports: Musculoskeletal History: Reports: Arthritis, Back Pain, Chronic Neurological History: Reports: Other (See Below) Other Neuro History: RESTLESS LEG SYNDROME Psychiatric History: Reports: None Endocrine/Metabolic History: Reports: Diabetes, Type II, Obesity/BMI 30+ Hematologic History: Reports: None Immunologic History: Reports: None Oncologic (Cancer) History: Reports: None Other Dermatologic History: "autoimmune disorder of the skin" - Infectious Disease History Infectious Disease History: Reports: Chicken Pox, Measles, Mumps Other Infectious Disease History: Covid 09/2020 - Past Surgical History Head Surgeries/Procedures: Reports: None Other HEENT Surgeries/Procedures: VOCAL CORD SURG Other Cardiovascular Surgeries/Procedures: ANGIOGRAM Respiratory Surgical History: Reports: None GI Surgical History: Reports: Appendectomy, Cholecystectomy, Colonoscopy, EGD Female Surgical History: Reports: Hysterectomy Neurological Surgical History: Reports: None Musculoskeletal Surgical History: Reports: None Social & Family History - Family History Family Medical History: No Pertinent Family History - Caffeine Use Caffeine Use: Reports: Coffee - Living Situation & Occupation Living situation: Reports: , with Spouse ED ROS GENERAL - Review of Systems Review Of Systems: Comprehensive ROS is negative, except as noted in HPI. ED EXAM, GENERAL - Physical Exam Exam: See Below Exam Limited By: No Limitations General Appearance: Alert, WD/WN, Mild Distress Eye Exam: Bilateral Eye: EOMI, Normal Inspection Ears: Normal External Exam, Hearing Grossly Normal Nose: Normal Inspection Throat/Mouth: Normal Inspection, Normal Voice, No Airway Compromise Head: Atraumatic, Normocephalic Neck: Normal Inspection, Supple, Non-Tender, Full Range of Motion Respiratory/Chest: No Accessory Muscle Use, Chest Non-Tender, Decreased Breath Sounds, Crackles, Rhonchi Cardiovascular: Normal Peripheral Pulses, Regular Rate, Rhythm, No Edema, No Gallop, No JVD, No Murmur, No Rub Peripheral Pulses: 2+: Radial (L), Radial (R) GI/Abdominal: Normal Bowel Sounds, Soft, Non-Tender (Female) Exam: Deferred Rectal (Female) Exam: Deferred Back Exam: Normal Inspection, Decreased Range of Motion Extremities: Normal Inspection, Normal Range of Motion, Non-Tender, Normal Capillary Refill, No Pedal Edema Neurological: Alert, Oriented, Normal Cognition, No Motor/Sensory Deficits Psychiatric: Normal Affect, Normal Mood Skin Exam: Warm, Dry, Intact, Normal Color, No Rash Lymphatic: No Adenopathy #1 Interpretation EKG Date: 06/12/21 Time: 01:06 Rhythm: NSR Rate (Beats/Min): 94 [place]: LAD-Left [place] Deviation P-Wave: Present QRS: Normal ST-T: Normal QT: Normal Comparison: No Change Course - Vital Signs Last Recorded V/S: Last Vital Signs Temp 97.7 F 06/12/21 00:58 Pulse 99 06/12/21 00:58 Resp 20 06/12/21 00:58 BP Pulse Ox 96 06/12/21 00:58 - Orders/Labs/Meds Orders: Active Orders 24 hr Category Date Time Status Admission Diagnosis [ADT] Stat ADT 06/12/21 02:17 Ordered Admission Status [Patient Status] [ADT] Routine ADT 06/12/21 02:17 Ordered EKG Documentation Completion [RC] STAT Care 06/12/21 00:41 Active CULTURE BLOOD [BC] Stat Lab 06/12/21 00:56 Received CULTURE BLOOD [BC] Stat Lab 06/12/21 01:01 Received REFLEX LACTIC ACID YES OR NO [CHEM] Routine Lab 06/12/21 01:45 Received Magnesium Sulfate/D5W [Magnesium Sulfate in D5W 1 GM/ Med 06/12/21 02:15 Ordered 100 ML] 1 gm Premix Bag 1 bag IV ONETIME Magnesium Sulfate/D5W [Magnesium Sulfate in D5W 1 GM/ Med 06/12/21 02:15 Ordered 100 ML] 1 gm Premix Bag 1 bag IV ONETIME Blood Culture x2 Reflex Set [OM.PC] Stat Oth 06/12/21 00:41 Ordered Medication Orders Magnesium Sulfate/Dextrose 1 (gm/ Premix) 100 mls @ 100 mls/hr IV ONETIME ONE Stop: 06/12/21 03:14 Magnesium Sulfate/Dextrose 1 (gm/ Premix) 100 mls @ 100 mls/hr IV ONETIME ONE Stop: 06/12/21 03:14 Labs: Laboratory Tests 06/12/21 06/12/21 06/12/21 Range/Units 00:45 01:01 01:01 WBC 9.3 (5.0-10.0) 10^3/uL RBC 4.56 (4.2-5.4) 10^6/uL Hgb 13.5 (12.0-16.0) g/dL Hct 40.3 (37.0-47.0) % MCV 88.4 (80-100) fL MCH 29.6 (27.0-34.0) pg MCHC 33.5 (33.0-35.0) g/dL Plt Count 223 (150-450) 10^3/uL Neut % (Auto) 60.5 (42.2-75.2) % Lymph % (Auto) 28.6 (20.5-50.1) % Boundary % (Auto) 9.7 H (2-8) % Eos % (Auto) 0.8 L (1.0-3.0) % Baso % (Auto) 0.4 (0.0-1.0) % Sodium 139 (136-145) mmol/L Potassium 4.5 (3.5-5.1) mmol/L Chloride 98 (98-107) mmol/L Carbon Dioxide 30 (21-32) mmol/L Anion Gap 15.5 H (7-13) mEq/L BUN 17 (7-18) mg/dL Creatinine 0.93 (0.55-1.02) mg/dL Est Cr Clr Drug Dosing 48.56 mL/min Estimated GFR (MDRD) > 60 BUN/Creatinine Ratio 18.3 (No establ ref range) Glucose 177 H (70-99) mg/dL Lactic Acid (0.4-2.0) mmol/L Calcium 9.0 (8.5-10.1) mg/dL Magnesium (1.8-2.4) mg/dL Total Bilirubin 0.3 (0.2-1.0) mg/dL AST 11 L (15-37) U/L ALT 24 (14-59) U/L Alkaline Phosphatase 96 (46-116) U/L C-Reactive Protein 3.3 H (0.0-0.9) mg/dL B-Natriuretic Peptide (0-100) pg/ml Total Protein 6.9 (6.4-8.2) g/dL Albumin 3.3 L (3.4-5.0) g/dL Globulin 3.6 Albumin/Globulin Ratio 0.92 Influenza Type A RNA Negative (NEGATIVE) Influenza Type B RNA Negative (NEGATIVE) SARS-CoV-2 RNA (JENNIFER) Negative (NEGATIVE) 06/12/21 06/12/21 06/12/21 Range/Units 01:01 01:01 01:01 WBC (5.0-10.0) 10^3/uL RBC (4.2-5.4) 10^6/uL Hgb (12.0-16.0) g/dL Hct (37.0-47.0) % MCV (80-100) fL MCH (27.0-34.0) pg MCHC (33.0-35.0) g/dL Plt Count (150-450) 10^3/uL Neut % (Auto) (42.2-75.2) % Lymph % (Auto) (20.5-50.1) % Boundary % (Auto) (2-8) % Eos % (Auto) (1.0-3.0) % Baso % (Auto) (0.0-1.0) % Sodium (136-145) mmol/L Potassium (3.5-5.1) mmol/L Chloride (98-107) mmol/L Carbon Dioxide (21-32) mmol/L Anion Gap (7-13) mEq/L BUN (7-18) mg/dL Creatinine (0.55-1.02) mg/dL Est Cr Clr Drug Dosing mL/min Estimated GFR (MDRD) BUN/Creatinine Ratio (No establ ref range) Glucose (70-99) mg/dL Lactic Acid 3.2 H* (0.4-2.0) mmol/L Calcium (8.5-10.1) mg/dL Magnesium 0.9 L (1.8-2.4) mg/dL Total Bilirubin (0.2-1.0) mg/dL AST (15-37) U/L ALT (14-59) U/L Alkaline Phosphatase (46-116) U/L C-Reactive Protein (0.0-0.9) mg/dL B-Natriuretic Peptide 8 (0-100) pg/ml Total Protein (6.4-8.2) g/dL Albumin (3.4-5.0) g/dL Globulin Albumin/Globulin Ratio Influenza Type A RNA (NEGATIVE) Influenza Type B RNA (NEGATIVE) SARS-CoV-2 RNA (JENNIFER) (NEGATIVE) Meds: Medications Generic Name Dose Route Start Last Admin Trade Name Freq PRN Reason Stop Dose Admin Magnesium Sulfate/Dextrose 1 100 mls @ 100 mls/hr 06/12/21 02:15 gm/ Premix IV 06/12/21 03:14 ONETIME ONE Magnesium Sulfate/Dextrose 1 100 mls @ 100 mls/hr 06/12/21 02:15 gm/ Premix IV 06/12/21 03:14 ONETIME ONE Discontinued Medications Generic Name Dose Route Start Last Admin Trade Name Freq PRN Reason Stop Dose Admin Dexamethasone 8 mg 06/12/21 01:58 06/12/21 02:06 Dexamethasone 4 Mg/Ml Sdv IVPUSH 06/12/21 01:59 8 mg ONETIME ONE Administration Ceftriaxone Sodium 1 gm/ 50 mls @ 100 mls/hr 06/12/21 01:33 06/12/21 01:41 Sodium Chloride IV 06/12/21 02:02 100 mls/hr ONETIME ONE Administration - Radiology Interpretation Free Text/Narrative:: Chest x-ray: PROCEDURE INFORMATION: Exam: XR Chest Exam date and time: 06/12/2021 12:46 AM Age: 65 years old Clinical indication: Chest wall pain; Additional info: Chest pain TECHNIQUE: Imaging protocol: XR of the chest. Views: 1 view. COMPARISON: CR Chest 1V Frontal 08/30/2020 5:52 PM FINDINGS: Lungs: Unremarkable. No consolidation. Pleural spaces: Unremarkable. No pleural effusion. No pneumothorax. Heart/Mediastinum: Unremarkable. No cardiomegaly. Bones/joints: Unremarkable. IMPRESSION: No acute findings. Thank you for allowing us to participate in the care of your patient. Dictated and Authenticated by: Matthew Buchanan MD 06/12/2021 2:14 AM Central Time ([place] & [place]) See radiologist report - Re-Assessments/Exams Free Text/Narrative Re-Assessment/Exam: 06/12/21 01:59 Discussed patient's "allergy" to steroid. Patient states the last time she took 1 was a Medrol Dosepak and it made her very shaky. Explained to the patient the importance of steroids with COPD exacerbation. Patient agreed to try IV steroid. 06/12/21 02:20 Discussed patient case with Dr. Morataya who agreed to accept the patient for observation admission. Departure - Departure Time of Disposition: 02:21 Disposition: Refer to Observation Condition: Fair Clinical Impression: COPD with exacerbation, Hypomagnesemia - Discharge Information *PRESCRIPTION DRUG MONITORING PROGRAM REVIEWED*: No *COPY OF PRESCRIPTION DRUG MONITORING REPORT IN PATIENT LANA: No Forms: ED Department Discharge Sepsis Event Note (ED) - Evaluation Sepsis Screening Result: No Definite Risk - Focused Exam Vital Signs: Vital Signs Temp Pulse Resp Pulse Ox 06/12/21 00:58 97.7 F 99 20 96 - My Orders Last 24 Hours: My Active Orders 06/12/21 00:41 EKG Documentation Completion [RC] STAT Blood Culture x2 Reflex Set [OM.PC] Stat 06/12/21 00:56 CULTURE BLOOD [BC] Stat 06/12/21 01:01 CULTURE BLOOD [BC] Stat 06/12/21 01:45 REFLEX LACTIC ACID YES OR NO [CHEM] Routine 06/12/21 02:15 Magnesium Sulfate/D5W [Magnesium Sulfate in D5W 1 GM/100 ML] 1 gm Premix Bag 1 bag IV ONETIME Magnesium Sulfate/D5W [Magnesium Sulfate in D5W 1 GM/100 ML] 1 gm Premix Bag 1 bag IV ONETIME 06/12/21 02:17 Admission Diagnosis [ADT] Stat Admission Status [Patient Status] [ADT] Routine - Assessment/Plan Last 24 Hours: My Active Orders 06/12/21 00:41 EKG Documentation Completion [RC] STAT Blood Culture x2 Reflex Set [OM.PC] Stat 06/12/21 00:56 CULTURE BLOOD [BC] Stat 06/12/21 01:01 CULTURE BLOOD [BC] Stat 06/12/21 01:45 REFLEX LACTIC ACID YES OR NO [CHEM] Routine 06/12/21 02:15 Magnesium Sulfate/D5W [Magnesium Sulfate in D5W 1 GM/100 ML] 1 gm Premix Bag 1 bag IV ONETIME Magnesium Sulfate/D5W [Magnesium Sulfate in D5W 1 GM/100 ML] 1 gm Premix Bag 1 bag IV ONETIME 06/12/21 02:17 Admission Diagnosis [ADT] Stat Admission Status [Patient Status] [ADT] Routine
[2021-06-12] MEDS ORDERED: cefTRIAXone 1 GM in Sodium Chloride 0.9% 50 ML IV ONE (01:33)
[2021-06-12 01:37] LABS: ANION GAP 15.5 mEq/L (7-13); CHLORIDE,CL 98 mmol/L (98-107); SODIUM,NA 139 mmol/L (136-145)
[2021-06-12] MEDS ORDERED: Dexamethasone 4 MG/ML SDV IVPUSH ONE (01:58)
[2021-06-12 02:05] LABS: CORONAVIRUS COVID-19 NAA NEGATIVE (NEGATIVE)
--- NOTE | 2021-06-12 02:15 | CR ---
PROCEDURE INFORMATION: Exam: XR Chest Exam date and time: 06/12/2021 12:46 AM Age: 65 years old Clinical indication: Chest wall pain; Additional info: Chest pain TECHNIQUE: Imaging protocol: XR of the chest. Views: 1 view. COMPARISON: CR Chest 1V Frontal 08/30/2020 5:52 PM FINDINGS: Lungs: Unremarkable. No consolidation. Pleural spaces: Unremarkable. No pleural effusion. No pneumothorax. Heart/Mediastinum: Unremarkable. No cardiomegaly. Bones/joints: Unremarkable. IMPRESSION: No acute findings.
[2021-06-12] MEDS ORDERED: Magnesium Sulfate/Water 2 GM in Premix Bag 1 BAG IV ONE (02:52)
[2021-06-12] MEDS ORDERED: 50% Dextrose in Water 50 ML Syringe IVPUSH PRN (02:54)
[2021-06-12] MEDS ORDERED: Glucagon,Human Recombinant 1 MG Vial IM PRN (02:54)
[2021-06-12] MEDS ORDERED: methylPREDNISolone Sodium Succinate 40 MG/1 ML SDV IVPUSH SCH ×2 (03:00→10:00)
[2021-06-12] MEDS ORDERED: Sodium Chloride 0.9% 10 ML Syringe FLUSH PRN (03:31)
[2021-06-12] MEDS ORDERED: Ondansetron 4 MG/2 ML SDV IVPUSH PRN (03:31)
[2021-06-12] MEDS ORDERED: Acetaminophen 325 MG Tab PO PRN (03:31)
--- NOTE | 2021-06-12 03:38 | PCM.SN.2 ---
- Free Text/Narrative Note: START OF DOCTOR EMAMIS HISTORY AND PHYSICAL / CONSULTATION NOTE Chief Complaint: Dyspnea History of Present Illness: The patient is a 59-year-old female presents to clinic of dyspnea. She states it started over the weekend it has gradually worsened. Patient has known history of COPD and she is a former smoker with [id number] history. She admits to experiencing rigors as well as cough which is nonproductive. She denies fever, nausea, vomiting, wheeze, abdominal pain, diarrhea, myalgia, dysuria, chest pain. Per staff in the emergency department, the patient saw her primary care physician or provider last week and they accidentally sent her medication via mail in pharmacy and there was a delay in receiving treatment. She presents for further evaluation Surgical History: Bilateral cataract surgery, vocal cord surgery, hysterectomy, appendectomy, cholecystectomy Family History: Cancer, stroke, diabetes, coronary artery disease, hypertension, hyperlipidemia Social History: Tobacco: Former smoker Alcohol: Denies Caffeine: Coffee, cola Drugs: Never Allergies: Lipitor, cerivastatin, hydrocodone, iodinated contrast/IV contrast, Mevacor, oxycodone, pravastatin, Zocor, Ultram, prednisone Code Status: DNR, DNI Pertinent Laboratory Results / Pertinent Radiology Results / Pertinent Diagnostic Results / Pertinent Vital Signs: Blood pressure 127/74, pulse 9 9, respiration 20, temperature 97.7 degrees, 96% room air, magnesium 0.9 Physical Examination: General: -Alert -No acute distress -No dyspnea -No tachypnea -Obese Head: -Atraumatic -Normocephalic Eyes: -Pupils equally round and reactive to light and accommodation -Extraocular muscles intact Neurological: -Cranial nerves II-XII intact Neck: -No jugular venous distention -No thyromegaly -No cervical lymphadenopathy Heart: -Regular rate -Regular rhythm -No murmurs -No gallops -No rubs Lungs: -No wheeze -Expiratory rhonchi present -No rales -Distant breath sounds bilaterally Abdomen: -Normal bowel sounds in all four quadrants -No rebound -No guarding -No tenderness Extremities: -2/4 pulse in all four extremities -No clubbing -No cyanosis -No edema -No calf tenderness present bilaterally -Negative Homans sign bilaterally Musculoskeletal: -5/5 bilateral upper extremity strength -5/5 bilateral lower extremity strength -Sensorium of bilateral upper extremities are equal and intact -Sensorium of bilateral lower extremities are equal and intact Additional Details / Additional Findings / Exceptions / Miscellaneous: Assessment / Plan: Minor COPD exacerbation. DuoNeb every 4 hours + Medrol 60 mg IV every 8 hours plus doxycycline 100 mg p.o. twice daily Hypomagnesemia. Will monitor magnesium levels intermittently and supplement as necessary History of medical noncompliance. Patient counseled regarding medical compliance Gout Obstructive sleep apnea. CPAP/BiPAP: Okay to use home device and/or pressure when sleeping if the patient uses CPAP/BiPAP at home Depression Angina Coronary artery disease Diabetes. Will check fingerstick glucose before every meal and at bedtime and provide sulci scale GERD. Protonix 40 mg p.o. daily Hyperlipidemia Hypertension Obesity. Patient would be counseled regarding lifestyle modification Diverticulosis Osteoarthritis Chronic pain Restless leg syndrome Osteopenia Degenerative disc disease Hepatic steatosis Pemphigoid Documented history of autoimmune diseasenot otherwise specified DVT prophylaxis. Lovenox 40 mg subcutaneously daily Disposition: Anticipate discharge within 24 hours. At the time of admission, the patient's home medications were pending input to the EMR/DHR system. Once their input, they will be reviewed and reconciled END OF DOCTOR EMAMIS HISTORY AND PHYSICAL / CONSULTATION NOTE
[2021-06-12] MEDS: Albuterol/Ipratropium 3.0-0.5 MG/3 ML Neb Soln NEB SCH ×3 (04:11→11:06)
[2021-06-12] MEDS ORDERED: Pantoprazole 40 MG Tab.CR PO SCH (06:00)
--- NOTE | 2021-06-12 07:36 | PCM.SN.2 ---
- Free Text/Narrative Note: START OF DOCTOR EMAMIS DISCHARGE SUMMARY Date of Admission: June 12, 2021 Date of Discharge: 12 PM on June 12, 2021 Primary Diagnosis: COPD exacerbation, mild Secondary Diagnosis: Hypomagnesemia, resolved History of medical noncompliance Gout Obstructive sleep apnea Depression Angina Coronary artery disease Diabetes GERD Hyperlipidemia Hypertension Obesity Diverticulosis Osteoarthritis Chronic pain Restless leg syndrome Osteopenia Degenerative disc disease Hepatic steatosis Pemphigoid Documented history of autoimmune diseasenot otherwise specified Consultations: None Condition on Discharge: Fair Disposition: The patient may follow-up with her primary care physician or with a provider as needed Discharge Medications: Prilosec 20 mg p.o. twice daily Nitroglycerin 0.4 mg sublingually every 5 minutes as needed chest pain. She is call 911 if there is no resolution of chest pain after the third dose Proventil HFA: 90 mcg/spray: 2 puffs frequency undefined as needed shortness of breath/wheeze Ranexa 500 mg p.o. twice daily Multivitamin 1 tab p.o. daily Metoprolol XL 25 mg p.o. daily Prednisone 10 mg p.o.: 4 tabs daily x3 days then 3 tabs daily x3 days then 2 tabs daily x3 days then 1 tab daily x3 days. Quantity sufficient. 0 refills Metformin 1000 mg p.o. twice daily Imdur 60 mg p.o. daily Lantus 68 units subcutaneously nightly Fenofibrate 145 mg p.o. daily Zetia 10 mg p.o. daily Lexapro 10 mg p.o. daily Enalapril 10 mg p.o. daily Vitamin D 125 mcg p.o. daily Aspirin 81 mg p.o. daily DuoNeb every 4 hours as needed shortness of breath/wheeze Azithromycin 250 mg p.o. daily END OF DOCTOR EMAMIS DISCHARGE SUMMARY
[2021-06-12] MEDS ORDERED: Metoprolol Succinate 25 MG Tab.ER PO SCH (09:00)
[2021-06-12] MEDS ORDERED: RANOLAZINE 500 MG PO SCH (09:00)
[2021-06-12] MEDS ORDERED: Aspirin 81 MG Tab.EC PO SCH (09:00)
[2021-06-12] MEDS ORDERED: Isosorbide Mononitrate 60 MG Tab.ER PO SCH (09:00)
[2021-06-12] MEDS ORDERED: Doxycycline Monohydrate 100 MG Cap PO SCH (09:00)
[2021-06-12] MEDS ORDERED: Escitalopram 10 MG Tab PO SCH (09:00)
[2021-06-12] MEDS ORDERED: Multivitamins, Therapeutic with Minerals Tab PO SCH (09:00)
[2021-06-12] MEDS ORDERED: metFORMIN 500 MG Tab PO SCH (09:00)
[2021-06-12] MEDS ORDERED: Enoxaparin 40 MG/0.4 ML Syringe SUBCUT SCH (09:00)
[2021-06-12] MEDS ORDERED: Ezetimibe 10 MG Tab PO SCH (09:00)
[2021-06-12] MEDS ORDERED: Cholecalciferol (Vitamin D3) 25 MCG Tab PO SCH (09:00)
[2021-06-12] MEDS ORDERED: Fenofibrate Nanocrystallized 145 MG Tab PO SCH (09:00)
[2021-06-12] MEDS: Insulin Lispro 100 Units/ML 3 ML Vial SUBCUT SCH ×2 (10:10→12:17)
[2021-06-12 12:47] VITALS: BP 112/44; PULSE 85
[2021-06-12] MEDS ORDERED: Insulin Glarg,Human.Rec.Analog 100 Unit/ML SUBCUT SCH (21:00)
== END 2021-06-12 14:30 | disposition home or self-care (01) ==
LOC: DL.ED 00:20 → DL.MS 02:17
PROVIDERS: ADMIT Internal Medicine; ATTEND Internal Medicine
DX: J44.1 Chronic obstructive pulmonary disease with (acute) exacerbation (principal); G47.33 Obstructive sleep apnea (adult) (pediatric); M10.9 Gout, unspecified; Z91.19 Patient's noncompliance with other medical treatment and regimen; E83.42 Hypomagnesemia; F32.9 Major depressive disorder, single episode, unspecified; I25.10 Atherosclerotic heart disease of native coronary artery without angina pectoris; E11.9 Type 2 diabetes mellitus without complications; K21.9 Gastro-esophageal reflux disease without esophagitis; E78.5 Hyperlipidemia, unspecified; I10 Essential (primary) hypertension; M19.90 Unspecified osteoarthritis, unspecified site; G89.29 Other chronic pain; G25.81 Restless legs syndrome; L12.9 Pemphigoid, unspecified; E88.89 Other specified metabolic disorders; Z79.82 Long term (current) use of aspirin; Z79.84 Long term (current) use of oral hypoglycemic drugs; Z79.899 Other long term (current) drug therapy; Z87.891 Personal history of nicotine dependence; Z88.6 Allergy status to analgesic agent; Z88.8 Allergy status to other drugs, medicaments and biological substances; Z91.041 Radiographic dye allergy status; Z20.822 Contact with and (suspected) exposure to COVID-19
CPT/HCPCS: 0240U; 36415; 71045; 80053; 82947; 83605; 83735; 83880; 85025; 86140; 87040; 93005; 93010; 94640; 96366; 96367; 96372; 96375; 99284; A9270; G0378; J0696; J1100; J1650; J1815; J2920; J3475; J7620-GY

== ENCOUNTER 2023-03-31 17:21 | Emergency (ER) | payer MEDICARE, OTHER ==
[2023-03-31 17:55] VITALS: PULSE 89
[2023-03-31] MEDS ORDERED: Acetaminophen/Codeine 300-30 MG Tab PO ONE (18:11)
[2023-03-31 18:29] LABS: BASOPHILS PERCENT AUTO 0.2 % (0.0-1.0); EOSINOPHILS PERCENT AUTO 0.6 % (1.0-3.0); HEMATOCRIT 38.8 % (37.0-47.0); HEMOGLOBIN 12.9 g/dL (12.0-16.0); LYMPHOCYTES PERCENT AUTO 31.9 % (20.5-50.1); MEAN CORPUSCULAR HEMOGLOBIN 29.1 pg (27.0-34.0); MEAN CORPUSCULAR HGB CONC 33.2 g/dL (33.0-35.0); MEAN CORPUSCULAR VOLUME 87.4 fL (80-100); MONOCYTES PERCENT AUTO 6.8 % (2-8); NEUTROPHILS PERCENT AUTO 60.5 % (42.2-75.2); PLATELET COUNT,PLT 489 10^3/uL (150-450); RED BLOOD CELL COUNT 4.44 10^6/uL (4.2-5.4); WHITE BLOOD CELL COUNT,WBC 12.7 10^3/uL (5.0-10.0)
[2023-03-31 20:16] VITALS: BP 130/96
== END 2023-03-31 20:15 | disposition home or self-care (01) ==
LOC: DL.ED 17:21
DX: R51.9 Headache, unspecified (principal); R68.84 Jaw pain; B02.9 Zoster without complications; J44.9 Chronic obstructive pulmonary disease, unspecified; E78.00 Pure hypercholesterolemia, unspecified; I10 Essential (primary) hypertension; K21.9 Gastro-esophageal reflux disease without esophagitis; E11.9 Type 2 diabetes mellitus without complications; E66.9 Obesity, unspecified; Z91.041 Radiographic dye allergy status; Z88.8 Allergy status to other drugs, medicaments and biological substances; Z88.5 Allergy status to narcotic agent; Z79.82 Long term (current) use of aspirin; Z79.899 Other long term (current) drug therapy; Z68.38 Body mass index [BMI] 38.0-38.9, adult
CPT/HCPCS: 36415; 70486; 85025; 86140; 99283; 99284; A9270-GY

== ENCOUNTER 2023-07-01 20:03 | Emergency (ER) | payer MEDICARE, OTHER | END 2023-07-01 20:35 | disposition left against medical advice (07) | LOC: DL.ED 20:03 | DX: Z53.21 Procedure and treatment not carried out due to patient leaving prior to being seen by health care provider (principal) ==